=== PATIENT | female | born 1930 | race Caucasian/White ===

== ENCOUNTER → 2017-01-06 | Outpatient (CLI) | payer BC ==
[~2017-01-06] MED LIST: ASPI-589 PO; ATOR-24 PO; CALC-354 PO; CIPR-255 PO; CPR500 PO; LOSA1TAB38 PO; METO50TA7 PO; METR-163 PO; MULT-1092 PO; MULT-506; PANT40TA PO; PRLSR20; TRIATAB3 PO
--- NOTE | 2017-01-06 15:08 | MAMMOGRAPHY REPORT ---
UNILATERAL LEFT DIGITAL DIAGNOSTIC MAMMOGRAM TOMOSYNTHESIS WITH CAD AND TARGETED LEFT ULTRASOUND: CLINICAL HISTORY: 6 Month Follow-up Left. TECHNIQUE: Breast tomosynthesis in addition to standard 2D mammography was performed. Current study was also evaluated with a Computer Aided Detection (CAD) system. Left CC and MLO 2-D and tomosynth esis images were obtained. COMPARISON: Comparison is made to exams dated: 07/06/2016 ultrasound, 06/28/2016 mammogram, 015 mammogram, 06/21/2014 ultrasound, 06/21/2014 mammogram, and 05/29/2014 mammogram - [facility]. BREAST COMPOSITION: There are scattered areas of fibroglandular density in the left breast. FINDINGS: The previously seen mass in the left lower inner quadrant is no longer evident, and was s hown to represent a benign cyst on the prior ultrasound exam. The remainder of the left breast is s table compared to prior exams, without suspicious masses, calcifications, or areas of architectural distortion noted. Targeted ultrasound was performed of the previously seen left breast masses for which follow-up is r ecommended. In the left breast at 7:00, 2 cm from the nipple, there is an oval anechoic circumscrib ed mass with a thin internal septation, measuring 4 x 2 x 4 mm, not significantly changed compared t o the prior exam where the mass measured 4 x 3 x 3 mm. The finding is benign and consistent with a cyst. In the left breast at 6:00 2 cm from the nipple, there is a round anechoic circumscribed mass which measures 3 x 3 mm, not significantly changed and consistent with a benign cyst. IMPRESSION: ACR BI-RADS CATEGORY 2: BENIGN, TARGETED ULTRASOUND ACR BI-RADS CATEGORY 2: BENIGN Small benign cysts within the left 6 to 7:00 breast. There is no mammographic or targeted sonograph ic evidence of malignancy. Return to annual mammogram screening schedule is recommended, due June 2017. The patient has been verbally notified of the results. Approximately 10% of breast cancers are not detected with mammography. A negative mammographic repor t should not delay biopsy if a clinically suggestive mass is present. Eleni Vazquez M.D. ah/:01/06/2017 10:51:00 Veterinary Parasitologist: Kimberly More RT(R)(M), [facility] letter sent: Normal 09/13 BI-RADS Code: ACR BI-RADS Category 2: Benign Ultrasound BI-RADS: ACR BI-RADS Category 2: Benign
== END | disposition home or self-care (01) ==
LOC: C.MAMM 10:12
PROVIDERS: ATTEND Internal Medicine Geriatric Medicine
DX: N60.02 Solitary cyst of left breast (principal)

== ENCOUNTER 2017-02-18 14:46 | Emergency (ER) | payer BC ==
[~2017-02-18] VITALS: Ht 167.6 cm; Wt 83.6 kg
[~2017-02-18 14:46] MED LIST changes: -ASPI-589 PO; -ATOR-24 PO; -CALC-354 PO; -CIPR-255 PO; -LOSA1TAB38 PO; -METO50TA7 PO; -MULT-1092 PO; -PANT40TA PO; -TRIATAB3 PO
[2017-02-18 14:49] VITALS: TEMP 36.7; Ht 167.6 cm; Wt 83.6 kg
[2017-02-18] MEDS ORDERED: SODIUM CHLORIDE 0.9% 1000ML 1,000 ML IV STA (15:22)
--- NOTE | 2017-02-18 15:36 | EMERGENCY ROOM VISIT NOTE ---
History Report prepared by Annamaria: Francia Soliz Under the Supervision of: Dr. Kyle Antony M.D. First contact with patient: 15:13 Chief Complaint: ABDOMINAL PAIN Stated Complaint: PAIN IN L SIDE, SENT BY DR REJI WALLACE History of Present Illness The patient is an 86 year old female who presents to the Emergency Room with complaints of persistent left sided abdominal pain that began this past week. She currently rates her discomfort as a 6/10 in severity. The patient reports that she has a history of difficulties with her bowels intermittently over the last several years. She reports diarrhea this past week and then notes that she developed left abdominal pain. The patient states that she consulted her PCP's office and was instructed to come to the emergency department for a CT scan. She reports a history of diverticulitis. The patient associates back pain with her symptoms today. She denies any fever, chills, nausea, vomiting, or urinary symptoms. The patient states that her pain today feels worse than her typical diverticulitis. She denies any recent antibiotic use or sick contacts. 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 Source of History: patient Onset: this past week Position: abdomen (left sided) Symptom Intensity: 6/10 Timing: other (persistent) Associated Symptoms: + back pain, No fevers, No chills, No nausea, No vomiting, No urinary symptoms Review of Systems See HPI for pertinent positives & negatives. A total of 10 systems reviewed and were otherwise negative. Past Medical & Surgical Medical Problems: (1) Diverticulitis Surgical Problems: (1) S/p nephrectomy Old medical records were reviewed. Nurse's notes were reviewed and I agree with. Family History No pertinent family history stated. Social History Smoking Status: Never Smoker Marital Status: Housing Status: lives with significant other Occupation Status: retired Current/Historical Medications Scheduled Aspirin (Aspirin Adult Low Dose), 81 MG PO DAILY Atorvastatin (Lipitor), 40 MG PO DAILY Calcium Carbonate-Cholecalcife (Caltrate 600+D), 1 TAB PO DAILY Ciprofloxacin Hcl (Cipro), 500 MG PO QD Losartan Potassium (Cozaar), 100 MG PO DAILY Metoprolol Succ (Toprol Xl) (Toprol-Xl), 50 MG PO DAILY Metronidazole (Flagyl), 500 MG PO TID Multiple Vitamins W/ Minerals (Centrum Silver 50+Women), 1 TAB PO DAILY Pantoprazole (Protonix), 40 MG PO QAM Triamterene/Hctz (Triamterene/Hctz 37.5-25MG), 1 TAB PO DAILY Allergies Coded Allergies: Clarithromycin (Verified Allergy, Unknown, RASH, 02/18/17) Penicillins (Verified Allergy, Unknown, RASH, 02/18/17) Sulfa Drugs (Verified Allergy, Unknown, RASH, 02/18/17) Uncoded Allergies: NICKELSULFATE (Allergy, Unknown, RED;ITCHY SKIN, 10/17/09) Physical Exam Vital Signs Date Time Temp Pulse Resp B/P (MAP) Pulse Ox O2 Delivery O2 Flow Rate FiO2 02/18/17 17:13 78 16 181/106 97 02/18/17 14:49 36.7 91 18 158/113 94 Room Air Physical Exam General: Well developed well nourished non-ill appearing older female in no acute distress, breathing comfortably on room air. Normal speech HEENT: Normal cephalic atraumatic. Pupils are equal round and reactive to light. Extraocular movements are intact. Oropharynx is pink with moist mucous membranes. No swelling of the mouth lips or tongue. Neck: Supple with a midline trachea. No meningeal signs or stiffness, no JVD or bruits. No Stridor. Chest: Clear to auscultation bilaterally. No wheezes or rhonchi. No increased work of breathing. Heart: regular rate and rhythm. Abdomen: Mild tenderness in the left lower abdomen. Soft, nondistended without rebound guarding or rigidity. Extremities: No cyanosis clubbing or edema. No calf tenderness or assymetry Spine/Back. Non tender to palpation. No CVA tenderness Skin: Good turgor without rashes. Neurologic exam: Cranial nerves two through 12 are intact. Motor and sensation are intact and symmetrical throughout. Medical Decision & Procedures ER Provider Diagnostic Interpretation: CT results as stated below per my review and radiologist interpretation: CT SCAN OF THE ABDOMEN AND PELVIS WITHOUT IV CONTRAST CLINICAL HISTORY: Left-sided abdominal pain. COMPARISON STUDY: Abdominal CT dated 01/15/2013 and 07/29/2011. TECHNIQUE: CT scan of the abdomen and pelvis is performed from the lung bases to the proximal femora. Images are reviewed in the axial, sagittal, and coronal planes. IV contrast was not administered for this examination. Automated dose control exposure was utilized. CT DOSE: 1459.50 mGy.cm FINDINGS: Lung bases: The patient is status post midline sternotomy. The heart is enlarged and without pericardial effusion. The coronary arteries are densely calcified. There is evidence of previous mitral and aortic valve surgery. Chronic interstitial changes are present at the lung bases. No airspace consolidation or pleural effusion is seen. Liver: The unenhanced liver is normal in size, contour, and attenuation. There is no intrahepatic biliary ductal dilatation. Gallbladder: There are numerous calcified gallstones. The gallbladder is otherwise normal in appearance.. Spleen: Normal in size and attenuation. Pancreas: The unenhanced pancreas is moderately atrophic and grossly unremarkable. Adrenal glands: Unremarkable. Kidneys: The right kidney is surgically absent. The left kidney demonstrates mild cortical atrophy and is without hydronephrosis. No left renal calculi are identified. There is no evidence of contour deforming left renal mass lesion. Abdominal vasculature: There is advanced atherosclerotic calcification and ectasia of the abdominal aorta. Stomach and bowel: There is a large hiatal hernia, with over half the stomach located in the thoracic cavity. The duodenum is normal in configuration. No bowel obstruction is seen. There is advanced sigmoid diverticulosis. There is mild inflammation seen around the distal descending/proximal sigmoid colon consistent with mild acute diverticulitis. There is no intraperitoneal free air or evidence of abscess. Mild fecal retention is noted in the right colon. The appendix is well-visualized and normal. Peritoneum: There is no intraperitoneal free air or abdominal ascites. Lymphadenopathy: None. Pelvic viscera: The bladder, uterus, and adnexa are normal as visualized. Skeletal structures: The skeletal structures are osteopenic. There is moderate lumbosacral spondylosis. Sclerotic change is seen at the sacroiliac joints and pubic symphysis. No lytic or blastic lesions are seen. A sclerotic focus in the body of T11 is unchanged from 2011 and of doubtful significance. IMPRESSION: 1. There is advanced sigmoid diverticulosis with evidence of mild acute sigmoid diverticulitis. No intraperitoneal free air is identified and there is no evidence of abscess. 2. The right kidney is surgically absent. 3. Large hiatal hernia. 4. Mild cardiomegaly. 5. Additional findings as above. Electronically signed by: John Rosario M.D. 02/18/2017 4:05 PM Dictated Date/Time: 02/18/2017 3:45 PM Laboratory Results 02/18/17 15:10 Red Blood Count 4.12, Mean Corpuscular Volume 93.4, Mean Corpuscular Hemoglobin 31.3, Mean Corpuscular Hemoglobin Concent 33.5, Mean Platelet Volume 12.5, Neutrophils (%) (Auto) 59.1, Lymphocytes (%) (Auto) 25.2, Monocytes (%) (Auto) 11.0, Eosinophils (%) (Auto) 4.3, Basophils (%) (Auto) 0.3, Neutrophils # (Auto ) 4.73, Lymphocytes # (Auto) 2.01, Monocytes # (Auto) 0.88, Eosinophils # (Auto ) 0.34, Basophils # (Auto) 0.02 02/18/17 15:10 Test 02/18/17 15:10 White Blood Count 7.99 K/uL (4.8-10.8) Red Blood Count 4.12 M/uL (4.2-5.4) Hemoglobin 12.9 g/dL (12.0-16.0) Hematocrit 38.5 % (37-47) Mean Corpuscular Volume 93.4 fL (80-100) Mean Corpuscular Hemoglobin 31.3 pg (25-34) Mean Corpuscular Hemoglobin Concent 33.5 g/dl (32-36) Platelet Count 146 K/uL (130-400) Mean Platelet Volume 12.5 fL (7.4-10.4) Neutrophils (%) (Auto) 59.1 % Lymphocytes (%) (Auto) 25.2 % Monocytes (%) (Auto) 11.0 % Eosinophils (%) (Auto) 4.3 % Basophils (%) (Auto) 0.3 % Neutrophils # (Auto) 4.73 K/uL (1.4-6.5) Lymphocytes # (Auto) 2.01 K/uL (1.2-3.4) Monocytes # (Auto) 0.88 K/uL (0.11-0.59) Eosinophils # (Auto) 0.34 K/uL (0-0.5) Basophils # (Auto) 0.02 K/uL (0-0.2) RDW Standard Deviation 47.4 fL (36.4-46.3) RDW Coefficient of Variation 13.7 % (11.5-14.5) Immature Granulocyte % (Auto) 0.1 % Immature Granulocyte # (Auto) 0.01 K/uL (0.00-0.02) Urine Color YELLOW Urine Appearance CLEAR (CLEAR) Urine pH 5.5 (4.5-7.5) Urine Specific [place] 1.011 (1.000-1.030) Urine Protein NEG (NEG) Urine Glucose (UA) NEG (NEG) Urine Ketones NEG (NEG) Urine Occult Blood NEG (NEG) Urine Nitrite NEG (NEG) Urine Bilirubin NEG (NEG) Urine Urobilinogen NEG (NEG) Urine Leukocyte Esterase SMALL (NEG) Urine WBC (Auto) 1-5 /hpf (0-5) Urine RBC (Auto) 0-4 /hpf (0-4) Urine Hyaline Casts (Auto) 0 /lpf (0-5) Urine Epithelial Cells (Auto) >30 /lpf (0-5) Urine Bacteria (Auto) NEG (NEG) Anion Gap 8.0 mmol/L (3-11) Est Creatinine Clear Calc Drug Dose 35.1 ml/min Estimated GFR () 43.6 Estimated GFR (Non- 37.6 BUN/Creatinine Ratio 19.4 (10-20) Calcium Level 8.9 mg/dl (8.5-10.1) Total Bilirubin 0.6 mg/dl (0.2-1) Direct Bilirubin 0.2 mg/dl (0-0.2) Aspartate Amino Transf (AST/SGOT) 16 U/L (15-37) Alanine Aminotransferase (ALT/SGPT) 25 U/L (12-78) Alkaline Phosphatase 69 U/L (45-117) Total Protein 7.3 gm/dl (6.4-8.2) Albumin 3.7 gm/dl (3.4-5.0) Lipase 166 U/L (73-393) Laboratory studies as stated above per my review. Medications Administered Medications (Trade) Dose Ordered Sig/Brittney Route Start Time Stop Time Status Last Admin Dose Admin Sodium Chloride 1,000 ml @ 999 mls/hr Q1H1M STAT IV 02/18/17 15:22 02/18/17 16:22 DC 02/18/17 15:48 999 MLS/HR Ciprofloxacin (Cipro Tab) 500 mg NOW STAT PO 02/18/17 16:36 02/18/17 16:38 DC 02/18/17 17:07 500 MG Metronidazole (Flagyl Tab) 500 mg NOW STAT PO 02/18/17 16:36 02/18/17 16:38 DC 02/18/17 17:07 500 MG ED Course 1515: Past medical records reviewed. The patient was evaluated in room B10, and a complete history and physical examination were performed. 1522: Ordered Sodium Chloride 1000 ml @ 999 mls/hr IV. 1550: She arrived back from CT and appeared to be doing great. 1634: I reevaluated the patient and she is resting comfortably. I discussed the exam findings with her and I discussed the treatment plan. She verbalized complete understanding and agreement. She will be ready for discharge shortly. 1636: Ordered Flagyl Tab 500 mg PO, Cipro Tab 500 mg PO. Medical Decision Differentials include, but are not limited to; diverticulitis, colitis, kidney stone, UTI, electrolyte or metabolic abnormality. Medication Reconciliation: I attest that I have personally reviewed the patient' s current medication list. Blood Pressure Screening: Patient was found to have a slightly eleated blood pressure due to circumstances. I do not believe that the patient requires hypertension monitoring. This patient comes in as described above. She was placed in room B 10. She is having some mild left lower quadrant abdominal pain .she looks well on exam and is nontoxic. . She has no peritonitis. She has had diverticulitis before. IV access established and blood work was obtained . she's had no white count or fever to suggest infection. She has some mild renal insufficiency however she has baseline 1 kidney. She's no other acute electrolyte or metabolic abnormality. She has nothing to suggest liver disease or gallbladder disease. Her urinalysis does not suggest infection. I did a CAT scan without contrast given that she has one kidney. She has some mild diverticulitis. No evidence of abscess. I will treat her with Cipro and Flagyl. She is pen allergic. Based on her renal insufficiency ,we will do Cipro 500 mg just once a day for 10 days, the first dose was given here and Flagyl 500 mg 3 times a day for 10 days. I told her not to drink any alcohol for the next 10 days when taking the Flagyl as it could make her very ill. I encouraged follow-up with her regular doctor Tuesday for recheck and return sooner if: increasing pain, worsening of symptoms, fever chills, not tolerating fluids, any new problems concerns. She was happy with plan and was discharged home. Impression Primary Impression: Acute diverticulitis Additional Impression: Sigmoid diverticulitis Scribe Attestation The scribe's documentation has been prepared under my direction and personally reviewed by me in its entirety. I confirm that the note above accurately reflects all work, treatment, procedures, and medical decision making performed by me. Departure Information Dispostion Home / Self-Care Prescriptions Metronidazole (Flagyl) 500 Mg Tab 500 MG PO TID for 10 Days, #30 TAB Prov: Kyle Antony M.D. 02/18/17 Ciprofloxacin Hcl (CIPRO) 500 Mg Tab 500 MG PO QD, #10 TAB Prov: Kyle Antony M.D. 02/18/17 Referrals Reji Wallace M.D. (PCP) Forms HOME CARE DOCUMENTATION FORM, IMPORTANT VISIT INFORMATION Patient Instructions My [facility] Additional Instructions Rest. Drink plenty of fluids. Use Cipro 500 mg once a dayantibiotic. 10 days total. Use Flagyl 500 mg 3 times a dayantibiotic. 10 days so Do not drink alcohol For the next 10 days when you are on these antibiotics, you will make you feel very sick Return if: Worsening of symptoms, fever or chills, any new problems or concerns Problem Qualifiers
--- NOTE | 2017-02-18 16:06 | DIAGNOSTIC IMAGING REPORT ---
CT SCAN OF THE ABDOMEN AND PELVIS WITHOUT IV CONTRAST CLINICAL HISTORY: Left-sided abdominal pain. COMPARISON STUDY: Abdominal CT dated 01/15/2013 and 07/29/2011. TECHNIQUE: CT scan of the abdomen and pelvis is performed from the lung bases to the proximal femora. Images are reviewed in the axial, sagittal, and coronal planes. IV contrast was not administered for this examination. Automated dose control exposure was utilized. CT DOSE: 1459.50 mGy.cm FINDINGS: Lung bases: The patient is status post midline sternotomy. The heart is enlarged and without pericardial effusion. The coronary arteries are densely calcified. There is evidence of previous mitral and aortic valve surgery. Chronic interstitial changes are present at the lung bases. No airspace consolidation or pleural effusion is seen. Liver: The unenhanced liver is normal in size, contour, and attenuation. There is no intrahepatic biliary ductal dilatation. Gallbladder: There are numerous calcified gallstones. The gallbladder is otherwise normal in appearance.. Spleen: Normal in size and attenuation. Pancreas: The unenhanced pancreas is moderately atrophic and grossly unremarkable. Adrenal glands: Unremarkable. Kidneys: The right kidney is surgically absent. The left kidney demonstrates mild cortical atrophy and is without hydronephrosis. No left renal calculi are identified. There is no evidence of contour deforming left renal mass lesion. Abdominal vasculature: There is advanced atherosclerotic calcification and ectasia of the abdominal aorta. Stomach and bowel: There is a large hiatal hernia, with over half the stomach located in the thoracic cavity. The duodenum is normal in configuration. No bowel obstruction is seen. There is advanced sigmoid diverticulosis. There is mild inflammation seen around the distal descending/proximal sigmoid colon consistent with mild acute diverticulitis. There is no intraperitoneal free air or evidence of abscess. Mild fecal retention is noted in the right colon. The appendix is well-visualized and normal. Peritoneum: There is no intraperitoneal free air or abdominal ascites. Lymphadenopathy: None. Pelvic viscera: The bladder, uterus, and adnexa are normal as visualized. Skeletal structures: The skeletal structures are osteopenic. There is moderate lumbosacral spondylosis. Sclerotic change is seen at the sacroiliac joints and pubic symphysis. No lytic or blastic lesions are seen. A sclerotic focus in the body of T11 is unchanged from 2011 and of doubtful significance. IMPRESSION: 1. There is advanced sigmoid diverticulosis with evidence of mild acute sigmoid diverticulitis. No intraperitoneal free air is identified and there is no evidence of abscess. 2. The right kidney is surgically absent. 3. Large hiatal hernia. 4. Mild cardiomegaly. 5. Additional findings as above. Electronically signed by: John Rosario M.D. 02/18/2017 4:05 PM Dictated Date/Time: 02/18/2017 3:45 PM
[2017-02-18 16:08] LABS: BASO % 0.3 %; BASO ABS # 0.02 K/uL (0-0.2); COMPLETE YES; EOS % 4.3 %; HEMATOCRIT 38.5 % (37-47); IG% 0.1 %; LYMPH % 25.2 %; LYMPH ABS # 2.01 K/uL (1.2-3.4); MEAN CELL VOLUME 93.4 fL (80-100); MEAN CORPUSCULAR HEMOGLOBIN 31.3 pg (25-34); MEAN CORPUSCULAR HGB CONC 33.5 g/dl (32-36); MEAN PLATELET VOLUME 12.5 fL (7.4-10.4); NEUT % 59.1 %; PLATELET COUNT 146 K/uL (130-400); RED BLOOD COUNT 4.12 M/uL (4.2-5.4); WHITE BLOOD COUNT 7.99 K/uL (4.8-10.8)
[2017-02-18 16:13] LABS: BUN/CREATININE RATIO 19.4 (10-20); CREATININE 1.3 mg/dl (0.60-1.20); POTASSIUM 4.3 mmol/L (3.5-5.1)
[2017-02-18 16:18] LABS: MANUAL MICROSCOPIC REQUIRED? NO; REVIEW REQ? NO; URINE APPEARANCE CLEAR (CLEAR); URINE BILIRUBIN NEG (NEG); URINE COLOR YELLOW; URINE EPITHELIAL CELL AUTO >30 /lpf (0-5); URINE NITRITE NEG (NEG); URINE PH 5.5 (4.5-7.5); URINE SPECIFIC GRAVITY 1.011 (1.000-1.030); UROBILINOGEN NEG (NEG)
[2017-02-18] MEDS ORDERED: LOSA1TAB38 PO (16:29)
[2017-02-18] MEDS ORDERED: ASPI-589 PO (16:29)
[2017-02-18] MEDS ORDERED: PANT40TA PO (16:29)
[2017-02-18] MEDS ORDERED: ATOR-24 PO (16:29)
[2017-02-18] MEDS ORDERED: CALC-354 PO (16:29)
[2017-02-18] MEDS ORDERED: METO50TA7 PO (16:29)
[2017-02-18] MEDS ORDERED: TRIATAB3 PO (16:29)
[2017-02-18] MEDS ORDERED: MULT-1092 PO (16:29)
[2017-02-18] MEDS ORDERED: METRONIDAZOLE 250 MG TAB PO STA (16:36)
[2017-02-18] MEDS ORDERED: CIPROFLOXACIN 500 MG TAB PO STA (16:36)
[2017-02-18] MEDS ORDERED: METR-163 PO (16:44)
[2017-02-18] MEDS ORDERED: CIPR-255 PO (16:44)
[2017-02-18 17:03] LABS: CALCIUM 8.9 mg/dl (8.5-10.1)
[2017-02-18 17:13] VITALS: BP 181/106; PULSE 78; O2SAT 97
== END 2017-02-18 17:05 | disposition home or self-care (01) ==
LOC: C.EDB 14:47
DX: K57.32 Diverticulitis of large intestine without perforation or abscess without bleeding (principal); Z79.82 Long term (current) use of aspirin; Z79.899 Other long term (current) drug therapy

== ENCOUNTER → 2017-02-25 | Outpatient (CLI) | payer BC ==
[~2017-02-25] MED LIST changes: +ASPI-589 PO; +ATOR-24 PO; +CALC-354 PO; +CIPR-255 PO; -CPR500 PO; +LOSA1TAB38 PO; +METO50TA7 PO; +MULT-1092 PO; -MULT-506; +PANT40TA PO; -PRLSR20; +TRIATAB3 PO
== END | disposition home or self-care (01) ==
LOC: C.LABBC 13:06
PROVIDERS: ATTEND Internal Medicine Geriatric Medicine
DX: R19.7 Diarrhea, unspecified (principal)

== ENCOUNTER → 2017-07-28 | Outpatient (CLI) | payer BC ==
[~2017-07-28] MED LIST changes: -METR-163 PO
--- NOTE | 2017-07-28 15:31 | MAMMOGRAPHY REPORT ---
BILATERAL DIGITAL SCREENING MAMMOGRAM WITH CAD: 07/28/2017 CLINICAL HISTORY: Routine screening. Patient has no complaints. TECHNIQUE: Current study was also evaluated with a Computer Aided Detection (CAD) system. Bilateral CC and MLO views were obtained. COMPARISON: Comparison is made to exams dated: 01/06/2017 mammogram, 06/28/2016 mammogram, 06/24/2015 mammogram, 06/21/2014 mammogram, 05/29/2014 mammogram, and 05/28/2013 mammogram - [facility]. BREAST COMPOSITION: There are scattered areas of fibroglandular density in both breasts. FINDINGS: No suspicious masses, calcifications, or areas of architectural distortion are noted in ei ther breast. There has been no significant interval change compared to prior exams. Bilateral benign appearing calcifications are not significantly changed. Bilateral asymmetries and benign-appearing masses are stable. IMPRESSION: ACR BI-RADS CATEGORY 2: BENIGN There is no mammographic evidence of malignancy. A 1 year screening mammogram is recommended. The pa tient will receive written notification of the results. Approximately 10% of breast cancers are not detected with mammography. A negative mammographic report should not delay biopsy if a clinically suggestive mass is present. Eleni Vazquez M.D. /:07/28/2017 15:04:46 Printing Grey Cloth Tender: Andria CHANEL(Carol)(Ronal)(BD), [facility] letter sent: Normal 1/2 BI-RADS Code: ACR BI-RADS Category 2: Benign
== END | disposition home or self-care (01) ==
LOC: C.MAMM 13:06
PROVIDERS: ATTEND Internal Medicine Geriatric Medicine
DX: Z12.31 Encounter for screening mammogram for malignant neoplasm of breast (principal)

== ENCOUNTER → 2017-09-13 | Outpatient (CLI) | payer BC ==
[~2017-09-13] MED LIST changes: -METO50TA7 PO; +METO50TA8 PO
--- NOTE | 2017-09-13 15:21 | DIAGNOSTIC IMAGING REPORT ---
PELVIS 1 OR 2 VIEW ROUTINE CLINICAL HISTORY: HIP PAIN pain COMPARISON: None. 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 Moderate degenerative change of the sacroiliac joints including moderate sclerosis. No evidence for well-defined fracture or dislocation. No evidence for acetabular protrusion. There is no evidence for soft tissue swelling. 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 No acute process. The above report was generated using voice recognition software. It may contain grammatical, syntax or spelling errors. Electronically signed by: Georges Hanley M.D. 09/13/2017 3:20 PM Dictated Date/Time: 09/13/2017 3:19 PM
== END | disposition home or self-care (01) ==
LOC: C.LABBC 14:48
PROVIDERS: ATTEND Physician Assistant Medical
DX: M25.551 Pain in right hip (principal)

== ENCOUNTER → 2017-11-04 | Outpatient (CLI) | payer BC ==
--- NOTE | 2017-11-04 12:58 | DIAGNOSTIC IMAGING REPORT ---
ABDOMEN FOR HERNIA CLINICAL HISTORY: Right groin pain. COMPARISON STUDY: CT of the abdomen and pelvis February 18, 2017. FINDINGS: Sonography of the right groin demonstrates a bowel and fat-containing right groin hernia. By sonography, is not possible to determine whether this represents an inguinal or femoral hernia. IMPRESSION: Reducible bowel and fat-containing right groin hernia. By sonography, is difficult to determine whether this represents an inguinal or femoral hernia. Electronically signed by: Adebayo Woo M.D. 11/04/2017 12:56 PM Dictated Date/Time: 11/04/2017 12:53 PM
== END | disposition home or self-care (01) ==
LOC: C.ULTR 12:29
PROVIDERS: ATTEND Internal Medicine Geriatric Medicine
DX: M25.551 Pain in right hip (principal); K45.8 Other specified abdominal hernia without obstruction or gangrene

== ENCOUNTER 2019-12-30 13:59 | Inpatient (IN) ==
[2019-12-30] MEDS ORDERED: ONDANSETRON INJ 2 MG/ML 2 ML VIAL IV STA (14:10)
[2019-12-30] MEDS ORDERED: MoRPHine SULFATE 4 MG/ML 1 ML CARP\\VIAL IV STA (14:10)
[2019-12-30] MEDS ORDERED: SODIUM CHLORIDE 0.9% 1000ML 250 ML IV ONE (14:10)
--- NOTE | 2019-12-30 14:19 | Emergency Department Note ---
History of Present Illness General Chief complaint: Abdominal Pain Stated complaint: lower abd pain Time Seen by Provider: 12/30/19 14:02 Source: patient Mode of arrival: EMS History of Present Illness Provider complaint: Abdominal pain Onset (ago): hour(s) (6 AM this morning) Location: abdomen (Across mid abdomen) Severity: moderate Pain Consistency: + constant Maximum Pain Intensity: 9 Quality: + sharp Relieved By: + none Associated symptoms: + nausea/vomiting; no chest pain, no cough, no fever/chills, no malaise and no shortness of breath This is an 89-year-old female with a history of a solitary kidney presenting with mid abdominal pain. It started at 6 AM this morning. She states it is across her mid abdomen without radiation. No modifying or alleviating factors. It is sharp in nature. It is associated with dry heaves. She denies fever, diarrhea, urinary symptoms, chest pain, shortness of breath, recent travel or known exposure to COVID-19. She called her doctor who advised her to come to the emergency department. Home Medications Home Medications Medication Instructions Recorded Confirmed Type aspirin 81 mg tablet,delayed 81 mg PO QAM 09/19/18 12/30/19 History release calcium carbonate-vitamin D3 600 1 tab PO QAM 09/19/18 12/30/19 History mg (1,500 mg)-800 unit tablet zlxjyiby-jfhhiso-kcqb-lutein 1 tab PO DAILY tab 09/19/18 12/30/19 History melatonin 5 mg PO HS PRN 03/02/19 12/30/19 History famotidine 40 mg tablet 40 mg PO HS tab 09/17/19 12/30/19 History metoprolol succinate 50 mg 50 mg PO QAM #30 tab 10/03/19 12/30/19 Rx tablet,extended release 24 hr atorvastatin 40 mg tablet 40 mg PO QAM #90 tab 12/21/19 12/30/19 Rx losartan 100 mg tablet 100 mg PO QAM #90 tab 12/21/19 12/30/19 Rx Allergies Allergy/AdvReac Type Severity Reaction Status Date / Time clarithromycin Allergy Unknown RASH Verified 12/30/19 14:45 Penicillins Allergy Unknown RASH Verified 12/30/19 14:45 Sulfa (Sulfonamide Allergy Unknown RASH Verified 12/30/19 14:45 Antibiotics) NICKELSULFATE Allergy Unknown RED;ITCHY Uncoded 12/30/19 14:45 SKIN Past Med/Surg History Medical History CAD (coronary artery disease) (Chronic) Dyslipidemia (Chronic) GERD (gastroesophageal reflux disease) History of atrial fibrillation POST OP CABG - RESOLVED SPONTANEOUSLY DURING HOSPITAL STAY - NO ISSUES SINCE. History of basal cell cancer HTN (hypertension) (Chronic) Left hip pain (Inactive) Lumbar radiculopathy (Inactive) Lumbar spinal stenosis Mitral regurgitation (Inactive) Osteoarthritis Sensorineural hearing loss (SNHL) of both ears (Inactive) Stage III chronic kidney disease (Acute) Status post nephrectomy BENIGN GROWTH Trigger finger Surgical History History of basal cell carcinoma (BCC) excision History of cardiac cath 9 YEARS AGO - [facility] - SOB, ABN STRESS TEST --> CABG History of cataract surgery History of colonoscopy History of coronary artery bypass graft 3 VESSELS - 9 YEARS AGO - [facility] [place] - FOLLOWS W/ DR. 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) Family History Mother Coronary heart disease Father Coronary heart disease Brother Coronary heart disease Social History Preferred Language: [place] Communication Ability: Effective Visual Impairment: No Limitations Hearing Ability: Normal Rn Digestive Required: No Beliefs That Will Affect Care: None marital status: Current Living Situation: Spouse current occupational status: retired Feels Safe at Home: Yes Smoking Status: Never smoker Second Hand Exposure: No ; Hx Alcohol Use: Yes Alcohol type: wine Hx Substance Use: No Review of Systems See HPI for pertinent positives & negatives. and A total of 10 systems reviewed and were otherwise negative Physical Exam Vital Signs Vital Signs - 24 hr 12/30/19 14:04 12/30/19 14:10 12/30/19 15:45 Temperature 36.5 C Temperature Source Oral Pulse Rate 54 L Pulse Rate [Bilateral Finger] 56 L Pulse Rate from SpO2 Sensor 56 L Pulse Strength Normal Respiratory Rate 15 18 Respiratory Effort / Characteristics Non-Labored Spontaneous Non-Labored Respiratory Depth Normal Normal Respiratory Pattern Regular Regular Blood Pressure 167/86 H Blood Pressure [Right Arm] 177/99 H Blood Pressure Mean 105 Blood Pressure Mean [Right Arm] 125 Blood Pressure Position Lying Pulse Oximetry 96 95 96 Oxygen Delivery Method Room Air Room Air Room Air Sepsis Recent Fever Within 48 Hours No Sepsis Action Taken by Nursing No Action Required Constitutional: Vital signs reviewed. Eyes: Pupils are equal round reactive to light. Conjunctiva are noninjected. ENT: Pharynx is clear without erythema or exudate. Mucous membranes are slightly dry. Neck supple without meningeal signs. Respiratory: Clear to auscultation bilaterally. Breath sounds are equal bilaterally. Cardiovascular: Regular rhythm with occasional extrasystole. Regular rate. Systolic murmur. GI: Soft, nondistended with left lower quadrant tenderness. No guarding. Bowel sounds are present. Musculoskeletal: No peripheral edema. No lower extremity tenderness. Integumentary: No cyanosis. or jaundice. Neurological: The patient is awake and alert. No focal deficits. Psychiatric: Normal affect. Not anxious appearing. Course Administered Medications Ciprofloxacin (Cipro) 400 mg in 200 mls @ 200 mls/hr IV NOW STA Stop: 12/30/19 16:35 Last Admin: 12/30/19 15:51 Dose: 200 mls/hr Documented by: [id number] Discontinued Medications Sodium Chloride (Nss 1000ml) 250 mls @ 999 mls/hr IV .Q16M ONE Stop: 12/30/19 14:25 Last Infusion: 12/30/19 15:00 Dose: 0 mls/hr Documented by: [id number] Admin: 12/30/19 14:25 Dose: 999 mls/hr Documented by: [id number] Morphine Sulfate (Morphine Sulfate) 4 mg IV NOW STA Stop: 12/30/19 14:11 Last Admin: 12/30/19 14:26 Dose: 4 mg Documented by: [id number] Ondansetron HCl (Zofran) 4 mg IV NOW STA Stop: 12/30/19 14:11 Last Admin: 12/30/19 14:26 Dose: 4 mg Documented by: [id number] Medical Decision Making Differential Diagnosis Diverticulitis, perforation, abscess, pancreatitis, mass Medical Records Attestation: I reviewed the patient's medical records. I did perform a limited focused review of portions of the patient's old chart on the electronic medical record. The patient has had no recent pertinent visits to this hospital. She was seen by pain management several months ago. A year ago she did have diverticulitis on CT scan of the sigmoid colon. Home Medications Current Medication List: was personally reviewed by me Laboratory Data Attestation: I reviewed the patient's lab results. Result diagrams: 12/30/19 14:30 12/30/19 14:30 Lab Results 12/30/19 12/30/19 Range/Units 14:30 14:30 WBC 9.23 (4.8-10.8) K/uL RBC 4.42 (4.2-5.4) M/uL Hgb 13.7 (12.0-16.0) g/dL Hct 42.1 (37-47) % MCV 95.2 (80-100) fL MCH 31.0 (25-34) pg MCHC 32.5 (32-36) g/dL RDW Std Deviation 48.8 H (36.4-46.3) fL RDW Coeff of Maryellen 14.1 (11.5-14.5) % Plt Count 152 (130-400) K/uL MPV 12.4 H (7.4-10.4) fL Immature Gran % (Auto) 0.1 % Neut % (Auto) 88.1 % Lymph % (Auto) 8.6 % [place] % (Auto) 2.7 % Eos % (Auto) 0.1 % Baso % (Auto) 0.4 % Immature Gran # (Auto) 0.01 (0.00-0.02) K/uL Neut # (Auto) 8.13 H (1.4-6.5) K/uL Lymph # (Auto) 0.79 L (1.2-3.4) K/uL [place] # (Auto) 0.25 (0.11-0.59) K/uL Eos # (Auto) 0.01 (0-0.5) K/uL Baso # (Auto) 0.04 (0-0.2) K/uL Sodium 138 (136-145) mmol/L Potassium (3.5-5.1) mmol/L Chloride 103 (98-107) mmol/L Carbon Dioxide 28 (21-32) mmol/L Anion Gap 7.0 (3-11) BUN 23 H (7-18) mg/dl Creatinine 1.13 (0.6-1.2) mg/dl Est Cr Clr Drug Dosing 35.5 ml/min Est GFR ( Amer) 50.6 Est GFR (Non-Af Amer) 43.7 BUN/Creatinine Ratio 20.6 H (10-20) Glucose 144 H (70-99) mg/dl Calcium 9.2 (8.5-10.1) mg/dl Total Bilirubin 0.7 (0.2-1) mg/dl AST (15-37) U/L ALT 23 (12-78) U/L Alkaline Phosphatase 53 (45-117) U/L Total Protein 7.2 (6.4-8.2) gm/dl Albumin 3.4 (3.4-5.0) gm/dl Globulin 3.8 (2.5-4.0) gm/dl Albumin/Globulin Ratio 0.9 (0.9-2) Lipase 71 L (73-393) U/L Imaging Data Radiologist's Impression: ABDOMEN AND PELVIS CT WITHOUT CONTRAST CT DOSE: 405.11 mGy.cm HISTORY: Acute left lower quadrant abdominal pain LLQ pain eval for divertic TECHNIQUE: Multiaxial CT images of the abdomen and pelvis were performed without contrast. A dose lowering technique was utilized adhering to the principles of ALARA. COMPARISON STUDY: CT abdomen and pelvis 12/30/2018, 07/29/2011. FINDINGS: Small right pleural effusion with dependent groundglass and consolidative right lung base opacities. Mild traction bronchiectasis of the lung bases also noted with minimal left lung base atelectasis. Minimal mucus plugging of the right middle lobe. No pneumatosis or pneumoperitoneum. Prior median sternotomy with cardiac valvular prosthesis. Cardiomegaly. Coronary artery and mitral annular calcifications. Limited evaluation of the solid abdominal organs without the use of IV contrast. Within the limitations of the exam, the spleen and adrenal glands are unremarkable. Mild cholelithiasis without CT evidence of acute cholecystitis or biliary ductal dilation. Mild to moderate generalized pancreatic atrophy. Unenhanced liver is unremarkable. Soft tissue attenuating 2.1 cm lesion of the superior pole left kidney is unchanged from the 2019 exam. This previously measured 1.6 cm in 2011. Surgically absent right kidney. Mild urinary bladder wall thickening. Unremarkable uterus. Extensive calcified plaque of the abdominal aorta with mild infrarenal tortuosity, 2.5 x 2.3 cm. No adenopathy. Large hiatal hernia with majority of the stomach present within the thoracic cavity. Multiple prominent air and fluid-filled loops of small bowel throughout the abdomen and pelvis are noted measuring up to 2.8 cm transversely. Interloop edema is noted with trace abdominal pelvic ascites. No discrete transition point. Extensive colonic diverticulosis. Mild wall thickening throughout the mid sigmoid colon. No significant pericolonic stranding. Mild wall thickening with partial distention of the transverse colon. The appendix is not diagnostically visualized. Mild subcutaneous edema of the body wall. Demineralized appearance the bones with degenerative changes of the spine, pelvis and hips. IMPRESSION: 1. Multiple prominent air and fluid-filled loops of small bowel throughout the abdomen and pelvis with reactive interloop edema and trace abdominal pelvic ascites is suggestive of low-grade small bowel obstruction versus ileu s/enteritis. A discrete transition point is not identified. 2. Extensive colonic diverticulosis. Wall thickening within the mid sigmoid colon is likely secondary to chronic diverticular disease without definite acute diverticulitis identified. 3. Soft tissue attenuating 2.1 cm lesion of the superior pole left kidney has slightly increased in size over the years, previously measuring 1.6 cm in 2011. A slow-growing renal cell carcinoma is the diagnosis of exclusion. 4. Small right pleural effusion with right lung base opacities suggestive of atelectasis versus pneumonitis. 5. Large hiatal hernia. 6. Additional findings as above. ACT 112: Negative or not required by law. The above report was generated using voice recognition software. It may contain grammatical, syntax or spelling errors. Electronically signed by: Carmelo Alfred M.D. 12/30/2019 3:12 PM Blood Pressure Blood Pressure Findings: Elevated blood pressure Blood Pressure Disposition: Referred to patients primary care provider MDM Narrative I did evaluate the patient as noted above. IV access was established. I did treat the patient with normal saline IV, morphine and Zofran IV. I did order a urine analysis. I did order and review the patient's blood work as noted in the electronic medical record. CBC is unremarkable without anemia or leukocytosis. Electrolytes are unremarkable. I did order a CT of the abdomen and pelvis. I did review the images myself as well as the radiology report as described above. The patient appears to have what looks like a low-grade small bowel obstruction which fits clinically with her symptoms. There is also diverticulosis without definite Acute diverticulitis identified but I do believe she likely has diverticulitis. She does have wall thickening and she is tender right over the sigmoid colon. I did reassess the patient. She states she feels much better at this time. I did discuss the test results with the patient and recommended hospitalization for further care and evaluation. I did discuss case with the hospitalist and case specialist. I did treat her with IV Cipro and Flagyl. Cardiac monitoring: Indication: Extrasystole on auscultation of the heart Rate and rhythm: Normal sinus rhythm with a rate of 60 with occasional PVCs. Impression & Plan Small bowel obstruction, Diverticulitis, Pleural effusion on right, Left kidney mass Discharge Plan Visit Data Chief Complaint: Abdominal Pain Stated Complaint: lower abd pain ED Provider: Deangelo Engel Discharge Problem: Small bowel obstruction, Diverticulitis, Pleural effusion on right, Left kidney mass Patient Disposition: Being Evaluated by Hospitalist Condition: Good Forms Stand Alone Forms: [facility] Prescriptions Prescriptions: No Action aspirin [Adult Aspirin Regimen] 81 mg tablet,delayed release (DR/EC) 81 mg PO QAM RF: 0 hqaepdla-adiloqx-ngag-lutein tablet 1 tab PO DAILY RF: 0 calcium carbonate-vitamin D3 [Caltrate with Vitamin D3] 600 mg(1,500mg) -800 unit tablet 1 tab PO QAM RF: 0 famotidine 40 mg tablet 40 mg PO HS RF: 0 metoprolol succinate 50 mg tablet extended release 24 hr 50 mg PO QAM Qty: 30 RF: 5 atorvastatin [Lipitor] 40 mg tablet 40 mg PO QAM Qty: 90 RF: 3 losartan 100 mg tablet 100 mg PO QAM Qty: 90 RF: 3 melatonin 5 mg Tablet 5 mg PO HS PRN (Reason: Insomnia) RF: 0 Referrals Referrals: Kyle Muse DO [Primary Care Provider] -
[2019-12-30 14:40] LABS: Basophils # (auto) 0.04 K/uL (0-0.2); Basophils % (auto) 0.4 %; Eosinophils # (auto) 0.01 K/uL (0-0.5); Eosinophils % (auto) 0.1 %; Hematocrit (blood only) 42.1 % (37-47); Hemoglobin 13.7 g/dL (12.0-16.0); Immature Granulocytes # (auto) 0.01 K/uL (0.00-0.02); Immature Granulocytes % (auto) 0.1 %; Lymphocytes # (auto) 0.79 K/uL (1.2-3.4); Lymphocytes % (auto) 8.6 %; Mean Corpuscular Hgb Conc 32.5 g/dL (32-36); Mean Corpuscular Volume 95.2 fL (80-100); Mean Platelet Volume 12.4 fL (7.4-10.4); Monocytes # (auto) 0.25 K/uL (0.11-0.59); Monocytes % (auto) 2.7 %; Neutrophils # (auto) 8.13 K/uL (1.4-6.5); Neutrophils % (auto) 88.1 %; Platelet Count 152 K/uL (130-400); RDW Coefficient of Variation 14.1 % (11.5-14.5); RDW Standard Deviation 48.8 fL (36.4-46.3); Red Blood Count 4.42 M/uL (4.2-5.4); White Blood Count 9.23 K/uL (4.8-10.8)
[2019-12-30 14:58] LABS: Albumin Level 3.4 gm/dl (3.4-5.0); BUN Creatinine Ratio 20.6 (10-20); Calcium 9.2 mg/dl (8.5-10.1); Creatinine Clr Calc Pharmacy 35.5 ml/min; Est GFR (African American) 50.6; Est GFR (Non-African American) 43.7
[2019-12-30 15:00] LABS: Albumin Globulin Ratio 0.9 (0.9-2); Bilirubin,Total 0.7 mg/dl (0.2-1); Globulin 3.8 gm/dl (2.5-4.0); Total Protein 7.2 gm/dl (6.4-8.2)
--- NOTE | 2019-12-30 15:13 | CT Scan Report ---
ABDOMEN AND PELVIS CT WITHOUT CONTRAST CT DOSE: 405.11 mGy.cm HISTORY: Acute left lower quadrant abdominal pain LLQ pain eval for divertic TECHNIQUE: Multiaxial CT images of the abdomen and pelvis were performed without contrast. A dose lo wering technique was utilized adhering to the principles of ALARA. COMPARISON STUDY: CT abdomen and pelvis 12/30/2018, 07/29/2011. FINDINGS: Small right pleural effusion with dependent groundglass and consolidative right lung base opacities. Mild traction bronchiectasis of the lung bases also noted with minimal left lung base atelectasis. Mi nimal mucus plugging of the right middle lobe. No pneumatosis or pneumoperitoneum. Prior median doty otomy with cardiac valvular prosthesis. Cardiomegaly. Coronary artery and mitral annular calcificatio ns. Limited evaluation of the solid abdominal organs without the use of IV contrast. Within the limitatio ns of the exam, the spleen and adrenal glands are unremarkable. Mild cholelithiasis without CT eviden ce of acute cholecystitis or biliary ductal dilation. Mild to moderate generalized pancreatic atrophy . Unenhanced liver is unremarkable. Soft tissue attenuating 2.1 cm lesion of the superior pole left k idney is unchanged from the 2019 exam. This previously measured 1.6 cm in 2011. Surgically absent rig ht kidney. Mild urinary bladder wall thickening. Unremarkable uterus. Extensive calcified plaque of t he abdominal aorta with mild infrarenal tortuosity, 2.5 x 2.3 cm. No adenopathy. Large hiatal hernia with majority of the stomach present within the thoracic cavity. Multiple promine nt air and fluid-filled loops of small bowel throughout the abdomen and pelvis are noted measuring up to 2.8 cm transversely. Interloop edema is noted with trace abdominal pelvic ascites. No discrete tr ansition point. Extensive colonic diverticulosis. Mild wall thickening throughout the mid sigmoid col on. No significant pericolonic stranding. Mild wall thickening with partial distention of the transve rse colon. The appendix is not diagnostically visualized. Mild subcutaneous edema of the body wall. D emineralized appearance the bones with degenerative changes of the spine, pelvis and hips. IMPRESSION: 1. Multiple prominent air and fluid-filled loops of small bowel throughout the abdomen and pelvis wit h reactive interloop edema and trace abdominal pelvic ascites is suggestive of low-grade small bowel obstruction versus ileus/enteritis. A discrete transition point is not identified. 2. Extensive colonic diverticulosis. Wall thickening within the mid sigmoid colon is likely secondary to chronic diverticular disease without definite acute diverticulitis identified. 3. Soft tissue attenuating 2.1 cm lesion of the superior pole left kidney has slightly increased in s ize over the years, previously measuring 1.6 cm in 2010. A slow-growing renal cell carcinoma is the d iagnosis of exclusion. 4. Small right pleural effusion with right lung base opacities suggestive of atelectasis versus pneum onitis. 5. Large hiatal hernia. 6. Additional findings as above. ACT 112: Negative or not required by law. The above report was generated using voice recognition software. It may contain grammatical, syntax o r spelling errors. Electronically signed by: Carmelo Alfred M.D. 12/30/2019 3:12 PM
[2019-12-30] MEDS ORDERED: metroNIDAZOLE 500 MG/100 ML BAG IV STA (15:36)
[2019-12-30] MEDS ORDERED: CIPROFLOXACIN / D5W 400 MG/200 ML BAG IV STA (15:36)
--- NOTE | 2019-12-30 16:17 | History & Physical Report ---
Date of Service December 30, 2019 Assessment & Plan (1) Diverticulitis: Although not definitive on CT this was without contrast and acute diverticulitis of her transverse bowel fits her symptoms clinically with mid transverse bowel wall thickening seen on CT. Suspect inflammation is causing ileus rather than adhesion-associated SBO. Continue ciprofloxacin and metronidazole IV. (2) Small bowel obstruction: Low grade. Suspect more ileus from inflammation than true SBO. Keep NPO for now but she can have ice and sips to keep her mouth hydrated. Likely can increase diet tomorrow as long as she does well overnight. LR 125ml/hr maintenance while NPO Since low grade will defer surgical consult at this stage. (3) Large hiatal hernia: Most of her stomach is in her thoracic cavity therefore likely she is owen ving reflux even if she does not notice it while on Pepcid. Elevate head of bed > 30 degrees at night Continue pepcid (switched to IV while NPO). (4) Pleural effusion on right: ?caused by atelectasis and poor air entry into RLL due to silent aspirations vs. compression from large hiatal hernia. Given her age cancerous etiology would be a more remote concern. No significant hypoxia or shortness of breath to suggest PNA. Consider speech evaluation once diet is advanced although I suspect if she is aspirating this may be more down to her large hiatal hernia and nausea with current illness causing reflux. Consult pulmonology for recommendations for thoracocentesis. (5) HTN (hypertension): Hold oral metoprolol and losartan while NPO. Start on enalapril IV while NPO. (6) Dyslipidemia: Holding statin while NPO (7) CAD (coronary artery disease): Holding ASA, BB, ARB, statin while NPO. (8) GERD (gastroesophageal reflux disease): as above for large hiatal hernia (9) Stage III chronic kidney disease: Stable. Continue to monitor BMP throughout admission. (10) Left kidney mass: Stable since last year, although slowly growing over the year. She notes she has urology follow up but cannot remember when this is. (11) DVT prophylaxis: Heparin 5000 units SQ BID Admission and Anticipated Discharge Date Admission Date: 12/30/2019 History of Present Illness Chief Complaint: Abdominal pain Primary Care Provider: Kyle Muse, DO Ocasio Leatha is an 89 year old female with past medical history of diverticulitis and hiatal hernia who presented to the ER on advice from her PCP due to abdominal pain and nausea. She reports this is much more painful than prior diverticulitis episodes and is more her upper abdomen. Started around 6am today, no radiation, severity 8/10 initially, currently mostly resolved after morphine given in the ER. Associated dry heaving but no vomiting. No change in bowels, no melena or blood noticed in stool. No urinary symptoms, shortness of breath, chest pain, acute cough, recent travel or COVID-19 exposure. She does note a more long standing cough at night when she lies flat. She has been told to keep her head up previously with her large hiatal hernia but notes she is inconsistent with this. No known allergies usually a this time of year. Allergies Allergy/AdvReac Type Severity Reaction Status Date / Time clarithromycin Allergy Unknown RASH Verified 12/30/19 14:45 Penicillins Allergy Unknown RASH Verified 12/30/19 14:45 Sulfa (Sulfonamide Allergy Unknown RASH Verified 12/30/19 14:45 Antibiotics) NICKELSULFATE Allergy Unknown RED;ITCHY Uncoded 12/30/19 14:45 SKIN Home Medications Home Medications Medication Instructions Recorded Confirmed Type aspirin 81 mg tablet,delayed 81 mg PO QAM 09/19/18 12/30/19 History release calcium carbonate-vitamin D3 600 1 tab PO QAM 09/19/18 12/30/19 History mg (1,500 mg)-800 unit tablet sqgzmcaq-yyrtnin-qbhp-lutein 1 tab PO DAILY tab 09/19/18 12/30/19 History melatonin 5 mg PO HS PRN 03/02/19 12/30/19 History famotidine 40 mg tablet 40 mg PO HS tab 09/17/19 12/30/19 History metoprolol succinate 50 mg 50 mg PO QAM #30 tab 10/03/19 12/30/19 Rx tablet,extended release 24 hr atorvastatin 40 mg tablet 40 mg PO QAM #90 tab 12/21/19 12/30/19 Rx losartan 100 mg tablet 100 mg PO QAM #90 tab 12/21/19 12/30/19 Rx Past Med/Surg History Medical History CAD (coronary artery disease) (Chronic) Dyslipidemia (Chronic) GERD (gastroesophageal reflux disease) History of atrial fibrillation POST OP CABG - RESOLVED SPONTANEOUSLY DURING HOSPITAL STAY - NO ISSUES SINCE. History of basal cell cancer HTN (hypertension) (Chronic) Left hip pain (Inactive) Lumbar radiculopathy (Inactive) Lumbar spinal stenosis Mitral regurgitation (Inactive) Osteoarthritis Sensorineural hearing loss (SNHL) of both ears (Inactive) Stage III chronic kidney disease (Acute) Status post nephrectomy BENIGN GROWTH Trigger finger Surgical History History of basal cell carcinoma (BCC) excision History of cardiac cath 9 YEARS AGO - [facility] - SOB, ABN STRESS TEST --> CABG History of cataract surgery History of colonoscopy History of coronary artery bypass graft 3 VESSELS - 9 YEARS AGO - [facility] – [place] - FOLLOWS W/ DR. 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) Family History Mother Coronary heart disease Father Coronary heart disease Brother Coronary heart disease Social History Preferred Language: French Communication Ability: Effective Visual Impairment: No Limitations Hearing Ability: Normal Special Delivery Mail Carrier Required: No Beliefs That Will Affect Care: None marital status: Current Living Situation: Spouse current occupational status: retired Feels Safe at Home: Yes Safety Concerns: Feels Safe At This Time Smoking Status: Never smoker Second Hand Exposure: No ; Hx Alcohol Use: Yes Alcohol type: wine Hx Substance Use: No Review of Systems Review of Systems: All systems reviewed & are unremarkable except as noted in HPI & below Physical Exam Constitutional: WD/WN, vitals as above Eyes: + anicteric sclerae; normal pupil size ENMT: external ear and nose normal, oropharynx normal Neck: trachea midline, no thyromegaly Respiratory: normal respiratory effort; no respiratory distress Auscultatio n: + diminished lung sounds (right base) and + crackles (right base); no rhonchi and no wheezes Cardiovascular: RRR, no murmur, no edema Gastrointestinal (Abdomen): Inspection/Auscultation: abdomen normal to inspection and normal bowel sounds Percussion/Palpation: + abdomen tender (mild on deep palpation epigastric and LLQ) and abdomen soft; no guarding and abdomen not rigid Musculoskeletal: no cyanosis or clubbing, extremities motor strength 5/5 Skin: no rashes, warm and dry Neurologic: moves all extremities and awake; no focal motor deficits and not confused Psychiatric: A+Ox3, euthymic affect Results & Data Results & Data ([facility]) Vital Signs (Past 12 Hours) Vital Signs Temp Pulse Pulse Resp BP BP Pulse Ox 12/30/19 15:45 56 L 18 177/99 H 96 12/30/19 14:10 95 12/30/19 14:04 36.5 C 54 L 15 167/86 H 96 Diagnostic Findings ABDOMEN AND PELVIS CT WITHOUT CONTRAST IMPRESSION: 1. Multiple prominent air and fluid-filled loops of small bowel throughout the abdomen and pelvis with reactive interloop edema and trace abdominal pelvic ascites is suggestive of low-grade small bowel obstruction versus ileus/enteritis. A discrete transition point is not identified. 2. Extensive colonic diverticulosis. Wall thickening within the mid sigmoid colon is likely secondary to chronic diverticular disease without definite acute diverticulitis identified. 3. Soft tissue attenuating 2.1 cm lesion of the superior pole left kidney has slightly increased in size over the years, previously measuring 1.6 cm in 2011. A slow-growing renal cell carcinoma is the diagnosis of exclusion. 4. Small right pleural effusion with right lung base opacities suggestive of atelectasis versus pneumonitis. 5. Large hiatal hernia. 6. Additional findings as above. ECG Indication: abdominal pain Rate (beats per minute): 67 Rhythm: normal sinus Findings: no acute ischemic change Comparison ECG Date: from (11/07/2006) Change: no significant change Code Status & VTE Plan Code Status Full, discussed with patient VTE Prophylaxis Plan VTE Prophylaxis will be ordered: Yes PG Care Time/CCT Total # of Minutes Spent Total Time Spent with Patient: Total time spent is greater than 50% in coordination of care (as documented) at patient's floor/unit and/or counseling patient: Coding Level of Care Code 36269 Initial Inpt Care Lvl 3 Diagnoses Diverticulitis K57.92 Small bowel obstruction K56.609 Large hiatal hernia K44.9 Pleural effusion on right J90 HTN (hypertension) I10 Dyslipidemia E78.5 CAD (coronary artery disease) I25.10 GERD (gastroesophageal reflux disease) K21.9 Stage III chronic kidney disease N18.3 Left kidney mass N28.89 DVT prophylaxis Z29.9
--- NOTE | 2019-12-30 16:57 | XRay Report ---
XR chest 2V PA/lateral HISTORY: 89 years-old Female right pleural effusion follow-up study in a patient with right-sided pl eural effusion COMPARISON: CT abdomen and pelvis of same day TECHNIQUE: PA and lateral views of the chest FINDINGS: Cardiac silhouette is enlarged. Prior median sternotomy with aortic valvular prosthesis. Calcific nataliia que of the thoracic aorta. No pneumothorax no overt pulmonary edema. Small to moderate right pleural effusion with right lung base opacities redemonstrated. The left lung is clear. Degenerative changes of the shoulders and spine. Large hiatal hernia. IMPRESSION: 1. Small to moderate right pleural effusion with right lung base consolidation. 2. Cardiomegaly without overt pulmonary edema. 3. Large hiatal hernia. ACT 112: Negative or not required by law. The above report was generated using voice recognition software. It may contain grammatical, syntax o r spelling errors. Electronically signed by: Carmelo Alfred M.D. 12/30/2019 4:56 PM
[2019-12-30] MEDS ORDERED: ONDANSETRON INJ 2 MG/ML 2 ML VIAL IV PRN (17:49)
[2019-12-30] MEDS ORDERED: MoRPHine SULFATE 2 MG/ML CARP IV PRN (18:26)
[2019-12-30] MEDS ORDERED: MoRPHine SULFATE 4 MG/ML 1 ML CARP\\VIAL IV PRN (18:26)
[2019-12-30] MEDS ORDERED: ACETAMINOPHEN 1,000 MG/100 ML VIAL IV PRN (18:26)
[2019-12-30] MEDS: ENALAPRILAT 1.25 MG in DEXTROSE 5% 25 ML IV SCH (20:24)
[2019-12-30] MEDS: LACTATED RINGER'S 1,000 ML IV SCH (20:24)
[2019-12-30] MEDS: FAMOTIDINE 20 MG in SYRINGE 3 ML IV SCH (20:55)
[2019-12-30] MEDS: HEPARIN SOD 5,000 UNIT/0.5 ML VIAL SQ SCH (21:04)
[2019-12-31] MEDS: ENALAPRILAT 1.25 MG in DEXTROSE 5% 25 ML IV SCH ×2 (01:32→06:34)
[2019-12-31] MEDS: metroNIDAZOLE 500 MG/100 ML BAG IV SCH ×3 (01:36→18:32)
[2019-12-31] MEDS: LACTATED RINGER'S 1,000 ML IV SCH ×2 (04:33→10:47)
[2019-12-31] MEDS: CIPROFLOXACIN / D5W 400 MG/200 ML BAG IV SCH ×2 (04:33→15:51)
[2019-12-31 06:41] LABS: Basophils # (auto) 0.05 K/uL (0-0.2); Basophils % (auto) 0.7 %; Eosinophils # (auto) 0.16 K/uL (0-0.5); Eosinophils % (auto) 2.3 %; Hematocrit (blood only) 37.2 % (37-47); Hemoglobin 11.9 g/dL (12.0-16.0); Immature Granulocytes # (auto) 0.01 K/uL (0.00-0.02); Immature Granulocytes % (auto) 0.1 %; Lymphocytes # (auto) 1.63 K/uL (1.2-3.4); Lymphocytes % (auto) 23.8 %; Mean Corpuscular Hemoglobin 30.4 pg (25-34); Mean Corpuscular Volume 95.1 fL (80-100); Mean Platelet Volume 11.5 fL (7.4-10.4); Monocytes # (auto) 0.67 K/uL (0.11-0.59); Monocytes % (auto) 9.8 %; Neutrophils # (auto) 4.33 K/uL (1.4-6.5); Neutrophils % (auto) 63.3 %; Platelet Count 124 K/uL (130-400); RDW Coefficient of Variation 14.3 % (11.5-14.5); RDW Standard Deviation 49.1 fL (36.4-46.3); Red Blood Count 3.91 M/uL (4.2-5.4); White Blood Count 6.85 K/uL (4.8-10.8)
[2019-12-31 07:01] LABS: Albumin Level 2.6 gm/dl (3.4-5.0); BUN Creatinine Ratio 19.3 (10-20); Calcium 8.3 mg/dl (8.5-10.1); Est GFR (African American) 56.6; Est GFR (Non-African American) 48.8; Potassium 3.9 mmol/L (3.5-5.1)
[2019-12-31 07:09] LABS: Albumin Globulin Ratio 0.9 (0.9-2); Bilirubin,Total 0.6 mg/dl (0.2-1); Globulin 2.9 gm/dl (2.5-4.0); Total Protein 5.5 gm/dl (6.4-8.2)
[2019-12-31 08:03] LABS: Appearance Urine Clear (Clear); Bacteria Urine Automated Negative (Negative); Bilirubin Urine Negative (Negative); Blood Urine Negative (Negative); Color Urine Dark Yellow; Epithelial Cell Urine Auto >30 /lpf (0-5); Glucose Urine UA Negative (Negative); Ketones Urine Trace (Negative); Leukocyte Esterase Urine Trace (Negative); Nitrite Urine Negative (Negative); Protein Urine Negative (Negative); RBC Urine Automated 0-4 /hpf (0-4); Specific Gravity Urine 1.026 (1.000-1.030); Urobilinogen Urine Negative (Negative)
[2019-12-31] MEDS ORDERED: ENALAPRILAT 2.5 MG in DEXTROSE 5% 25 ML IV SCH (09:00)
[2019-12-31] MEDS: HEPARIN SOD 5,000 UNIT/0.5 ML VIAL SQ SCH ×2 (09:24→20:11)
--- NOTE | 2019-12-31 11:35 | Hospitalist Progress Note ---
Date of Service December 31, 2019 Assessment & Plan (1) Diverticulitis: CT a/p on 12/29 was without contrast and not definitive; however, acute diverticulitis of her transverse bowel fits her symptoms clinically with mid transverse bowel wall thickening seen on CT. - Continue ciprofloxacin and metronidazole IV - Liquid diet today; advance cautiously this evening if she tolerates it - Passing flatus today, but no BM. If she does well, could consider PO abx tomorrow, advance diet, and possibly even discharge. (2) Small bowel obstruction: Low grade. Suspect more ileus from inflammation than true SBO. - Defer surgical consult as she is improving clinically - Plan as above (3) Large hiatal hernia: Most of her stomach is in her thoracic cavity therefore likely she is having reflux even if she does not notice it while on Pepcid. - Elevate head of bed > 30 degrees at night - Continue Pepcid (4) Pleural effusion on right: Possibly caused by atelectasis and poor air entry into RLL due to silent aspirations vs. compression from large hiatal hernia. Given her age cancerous etiology would be a more remote concern. No shortness of breath to suggest PNA. - Consider speech evaluation once diet is advanced although I suspect if she is aspirating this may be more down to her large hiatal hernia and nausea with current illness causing reflux. - Pulmonology consulted for recommendations for thoracocentesis (5) HTN (hypertension): BP is presently 150/70. HTN meds were held while NPO. - Restart home losartan & metoprolol (6) CAD (coronary artery disease): - Continue ASA, BB, ARB, statin (7) Dyslipidemia: - Continue statin (8) GERD (gastroesophageal reflux disease): As above for large hiatal hernia (9) Stage III chronic kidney disease: Baseline Cr ~1.0, eGFR ~50. Stable. - Continue to monitor BMP throughout admission. (10) Left kidney mass: Stable since last year, although slowly growing over the year. She notes she has urology follow up but cannot remember when this is. - Outpatient follow up (11) DVT prophylaxis: Heparin 5000 units SQ BID Admission and Anticipated Discharge Date Admission Date: December 30, 2019 Subjective Much improved today. No pain in the abdomen. No nausea or vomiting. Actually having some hunger. Reports no fevers/chills, chest pain, shortness of breath, abdominal pain, nausea, or vomiting. Physical Exam Constitutional: WD/WN, vitals as above Eyes: EOM intact bilaterally; no conjunctival abnormality ENMT: external ear and nose normal, oropharynx normal Neck: trachea midline, no thyromegaly normal visual inspection Respiratory: normal respiratory effort, lungs clear to auscultation no respiratory distress Cardiovascular: RRR, no murmur, no edema Gastrointestinal (Abdomen): Inspection/Auscultation: abdomen normal to inspection; abdomen not distended Percussion/Palpation: abdomen soft; abdomen nontender, no guarding and abdomen not rigid Musculoskeletal: no cyanosis or clubbing, extremities motor strength 5/5 Skin: no rashes, warm and dry Neurologic: moves all extremities and awake Psychiatric: Orientation: alert, oriented to person and cooperative Results & Data Results & Data ([facility]) Vital Signs (Past 12 Hours) Vital Signs Temp Pulse Resp BP Pulse Ox 12/31/19 06:45 37.2 C 63 20 150/69 H 91 12/30/19 23:45 36.9 C 57 L 15 153/75 H 91 PG Care Time/CCT Total # of Minutes Spent Total Time Spent with Patient: Total time spent is greater than 50% in coordination of care (as documented) at patient's floor/unit and/or counseling patient: Coding Level of Care Code 32038 Subseq Hosp Care Lvl 2 Diagnoses Diverticulitis K57.92 Small bowel obstruction K56.609 Large hiatal hernia K44.9 Pleural effusion on right J90 HTN (hypertension) I10 CAD (coronary artery disease) I25.10 Dyslipidemia E78.5 GERD (gastroesophageal reflux disease) K21.9 Stage III chronic kidney disease N18.3 Left kidney mass N28.89 DVT prophylaxis Z29.9
[2019-12-31] MEDS ORDERED: MoRPHine SULFATE 2 MG/ML CARP IV PRN (11:37)
[2019-12-31] MEDS ORDERED: ACETAMINOPHEN 325 MG TAB PO PRN (11:37)
[2019-12-31] MEDS: LOSARTAN POTASSIUM 50 MG TAB PO SCH (12:44)
--- NOTE | 2019-12-31 13:46 | Pulmonary Consultation ---
Date of Consultation December 31, 2019 Assessment & Plan (1) Pleural effusion on right: I discussed options with the patient including thoracentesis and drainage versus watching symptoms and repeating a chest x-ray. She does not appear very symptomatic at present. The patient favored repeating a chest x-ray in 2 weeks as opposed to undergoing a thoracentesis. The differential for this effusion is broad, however, I think it is less likely infectious given the lack of white count, fevers, chills or cough. She does have a history of cardiac disease and an echo would not be unreasonable. She also has a very loud heart murmur. However, she does not appear to be in any overt heart failure. The effusion may also be a sympathetic effusion related to the hiatal hernia and diverticulitis. We can follow-up with her in the pulmonary clinic with a chest x-ray in 2 weeks. Please let us know should any issues arise and we would be happy to reevaluate the situation. Please call us with questions. Thank you. (2) Large hiatal hernia: (3) CAD (coronary artery disease): History of Present Illness Reason for Consultation: Right-sided pleural effusion Requesting Physician: Dr. Carlos Ritchie Attending Physician: Allan Coleman MD History of Present Illness 89-year-old female with a history of hiatal hernia, diverticulitis, coronary artery disease, mitral valve regurgitation and hypertension who presents to the hospital due to abdominal pain for 1 day. Patient notes that yesterday morning she had abdominal pain and nausea and then in the afternoon the pain was unbearable so she went to the emergency department. She denied any chest pain. No shortness of breath, fevers or chills. No sick contacts. Denies any weight loss, night sweats or fatigue. She is pretty active at home and is able to walk her dog. She also lives with her . She denies any history of smoking. No significant secondhand smoke exposure. Pulmonary is consulted for right-sided pleural effusion that was seen on CT abdomen and chest x-ray. He is being treated for diverticulitis with ciprofloxacin and Flagyl. She notes that her stomach pain is much better and that she has an appetite this morning. She had a bowel movement yesterday. Denies any hematemesis or hematochezia/melena. Allergies Allergy/AdvReac Type Severity Reaction Status Date / Time clarithromycin Allergy Unknown RASH Verified 12/30/19 14:45 Penicillins Allergy Unknown RASH Verified 12/30/19 14:45 Sulfa (Sulfonamide Allergy Unknown RASH Verified 12/30/19 14:45 Antibiotics) NICKELSULFATE Allergy Unknown RED;ITCHY Uncoded 12/30/19 14:45 SKIN Home Medications Home Medications Medication Instructions Recorded Confirmed Type aspirin 81 mg tablet,delayed 81 mg PO QAM 09/19/18 12/30/19 History release calcium carbonate-vitamin D3 600 1 tab PO QAM 09/19/18 12/30/19 History mg (1,500 mg)-800 unit tablet quydimfl-bgrhnfi-qsar-lutein 1 tab PO DAILY tab 09/19/18 12/30/19 History melatonin 5 mg PO HS PRN 03/02/19 12/30/19 History famotidine 40 mg tablet 40 mg PO HS tab 09/17/19 12/30/19 History metoprolol succinate 50 mg 50 mg PO QAM #30 tab 10/03/19 12/30/19 Rx tablet,extended release 24 hr atorvastatin 40 mg tablet 40 mg PO QAM #90 tab 12/21/19 12/30/19 Rx losartan 100 mg tablet 100 mg PO QAM #90 tab 12/21/19 12/30/19 Rx Patient History Medical History CAD (coronary artery disease) (Chronic) Dyslipidemia (Chronic) GERD (gastroesophageal reflux disease) History of atrial fibrillation POST OP CABG - RESOLVED SPONTANEOUSLY DURING HOSPITAL STAY - NO ISSUES SINCE. History of basal cell cancer HTN (hypertension) (Chronic) Left hip pain (Inactive) Lumbar radiculopathy (Inactive) Lumbar spinal stenosis Mitral regurgitation (Inactive) Osteoarthritis Sensorineural hearing loss (SNHL) of both ears (Inactive) Stage III chronic kidney disease (Acute) Status post nephrectomy BENIGN GROWTH Trigger finger Surgical History History of basal cell carcinoma (BCC) excision History of cardiac cath 9 YEARS AGO - [facility] - SOB, ABN STRESS TEST --> CABG History of cataract surgery History of colonoscopy History of coronary artery bypass graft 3 VESSELS - 9 YEARS AGO - [facility] [place] FOLLOWS W/ DR. 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) Family History Mother Coronary heart disease Father Coronary heart disease Brother Coronary heart disease Social History Preferred Language: Israeli Communication Ability: Effective Visual Impairment: No Limitations Hearing Ability: Normal Substance Abuse Technician Required: No Beliefs That Will Affect Care: None marital status: Current Living Situation: Spouse current occupational status: retired Feels Safe at Home: Yes Safety Concerns: Feels Safe At This Time Smoking Status: Never smoker Second Hand Exposure: No ; Hx Alcohol Use: Yes Alcohol type: wine Hx Substance Use: No Review of Systems Review of Systems: All systems reviewed & are unremarkable except as noted in HPI & below Physical Exam Constitutional: WD/WN, vitals as above Eyes: PERRL, conjunctivae normal, anicteric sclerae ENMT: external ear and nose normal, oropharynx normal Neck: trachea midline, no thyromegaly Respiratory: normal respiratory effort, lungs clear to auscultation Cardiovascular: Rate/Rhythm: regular rate Heart Sounds: + murmur Extremities: no edema Gastrointestinal (Abdomen): normal bowel sounds, soft, nontender, no hepatosplenomegaly Musculoskeletal: no cyanosis or clubbing, extremities motor strength 5/5 Skin: no rashes, warm and dry Neurologic: PERRL, EOMI, accommodation nl, no face palsy, no dysarthria Psychiatric: A+Ox3, euthymic affect Results & Data Results & Data ([facility]) Vital Signs (Past 12 Hours) Vital Signs Temp Pulse Resp BP Pulse Ox 12/31/19 11:16 91 12/31/19 06:45 99.0 F 63 20 150/69 H 91 I personally reviewed the patient's laboratory data, chest imaging and previous notes. PG Care Time/CCT Total # of Minutes Spent Total Time Spent with Patient: Total time spent is greater than 50% in coordination of care (as documented) at patient's floor/unit and/or counseling patient: Coding Level of Care Code 26487 Initial Inpt Care Lvl 3 Medical Decision Making Moderate Complexity Diagnoses Pleural effusion on right J90 Large hiatal hernia K44.9 CAD (coronary artery disease) I25.10
[2019-12-31] MEDS: FAMOTIDINE 20 MG in SYRINGE 3 ML IV SCH (20:10)
[2019-12-31] MEDS ORDERED: FAMOTIDINE 40 MG TABLET PO SCH (21:00)
[2020-01-01] MEDS: metroNIDAZOLE 500 MG/100 ML BAG IV SCH ×3 (01:31→17:13)
[2020-01-01 02:27] LABS: Hematocrit (blood only) 38.8 % (37-47); Hemoglobin 12.7 g/dL (12.0-16.0); Mean Corpuscular Hemoglobin 31.2 pg (25-34); Mean Corpuscular Hgb Conc 32.7 g/dL (32-36); Mean Corpuscular Volume 95.3 fL (80-100); Mean Platelet Volume 12.1 fL (7.4-10.4); Platelet Count 132 K/uL (130-400); RDW Coefficient of Variation 14.1 % (11.5-14.5); RDW Standard Deviation 48.7 fL (36.4-46.3); Red Blood Count 4.07 M/uL (4.2-5.4); White Blood Count 7.27 K/uL (4.8-10.8)
[2020-01-01 02:44] LABS: BUN Creatinine Ratio 13.5 (10-20); Calcium 8.6 mg/dl (8.5-10.1); Creatinine Clr Calc Pharmacy 36.8 ml/min; Est GFR (African American) 52.9; Est GFR (Non-African American) 45.6; Potassium 3.9 mmol/L (3.5-5.1)
[2020-01-01] MEDS: CIPROFLOXACIN / D5W 400 MG/200 ML BAG IV SCH ×2 (03:34→17:13)
[2020-01-01] MEDS: HEPARIN SOD 5,000 UNIT/0.5 ML VIAL SQ SCH (08:33)
[2020-01-01] MEDS: LOSARTAN POTASSIUM 50 MG TAB PO SCH (08:34)
[2020-01-01] MEDS ORDERED: METOPROLOL SUCC 50MG EXT REL TAB PO SCH (09:00)
[2020-01-01] MEDS ORDERED: ASPIRIN 81 MG ECTAB PO SCH (09:00)
[2020-01-01] MEDS ORDERED: ATORVASTATIN 40 MG TAB PO SCH (09:00)
--- NOTE | 2020-01-07 23:00 | Discharge Summary ---
Date of Service January 01, 2020 Admission HPI Per Admitting Provider Ninfa Zhang is an 89 year old female with past medical history of diverticulitis and hiatal hernia who presented to the ER on advice from her PCP due to abdominal pain and nausea. She reports this is much more painful than prior diverticulitis episodes and is more her upper abdomen. Started around 6am today, no radiation, severity 8/10 initially, currently mostly resolved after morphine given in the ER. Associated dry heaving but no vomiting. No change in bowels, no melena or blood noticed in stool. No urinary symptoms, shortness of breath, chest pain, acute cough, recent travel or COVID-19 exposure. She does note a more long standing cough at night when she lies flat. She has been told to keep her head up previously with her large hiatal hernia but notes she is inconsistent with this. No known allergies u sually a this time of year. Principal Diagnosis diverticulitis Discharge Exam Constitutional: WD/WN, vitals as above Eyes: EOM intact bilaterally; no conjunctival abnormality ENMT: external ear and nose normal, oropharynx normal Neck: trachea midline, no thyromegaly normal visual inspection Respiratory: normal respiratory effort, lungs clear to auscultation no respiratory distress Cardiovascular: RRR, no murmur, no edema Gastrointestinal (Abdomen): Inspection/Auscultation: abdomen normal to inspection; abdomen not distended Percussion/Palpation: abdomen soft; abdomen nontender, no guarding and abdomen not rigid Musculoskeletal: no cyanosis or clubbing, extremities motor strength 5/5 Skin: no rashes, warm and dry Neurologic: moves all extremities and awake Psychiatric: Orientation: alert, oriented to person and cooperative Discharge Data Allergies Allergy/AdvReac Type Severity Reaction Status Date / Time clarithromycin Allergy Unknown RASH Verified 12/30/19 14:45 Penicillins Allergy Unknown RASH Verified 12/30/19 14:45 Sulfa (Sulfonamide Allergy Unknown RASH Verified 12/30/19 14:45 Antibiotics) NICKELSULFATE Allergy Unknown RED;ITCHY Uncoded 12/30/19 14:45 SKIN Consultations 12/30/19 15:36 ED Decision to Admit Stat 12/30/19 18:12 Consult Pulmonology Routine Ordered Studies 12/30/19 14:10 CT abd pelvis wo con Stat Hospital Course (1) Diverticulitis: CT a/p on 04/19 was without contrast and not definitive; however, acute diverticulitis of her transverse bowel fits her symptoms clinically with mid transverse bowel wall thickening seen on CT. - Continue ciprofloxacin and metronidazole IV - Liquid diet today; advance cautiously this evening if she tolerates it - On day of discharge, passed flatus. Advanced diet.'Tolerated PO antibiotics (2) Small bowel obstruction: Low grade. Suspect more ileus from inflammation than true SBO. - Defer surgical consult as she is improving clinically - Plan as above (3) Large hiatal hernia: Most of her stomach is in her thoracic cavity therefore likely she is having reflux even if she does not notice it while on Pepcid. - Elevate head of bed > 30 degrees at night - Continue Pepcid (4) Pleural effusion on right: Possibly caused by atelectasis and poor air entry into RLL due to silent aspirations vs. compression from large hiatal hernia. Given her age cancerous etiology would be a more remote concern. No shortness of breath to suggest PNA. - Consider speech evaluation once diet is advanced although I suspect if she is aspirating this may be more down to her large hiatal hernia and nausea with current illness causing reflux. - Pulmonology consulted for recommendations for thoracocentesis (5) HTN (hypertension): BP is presently 150/70. HTN meds were held while NPO. - Restart home losartan & metoprolol (6) CAD (coronary artery disease): - Continue ASA, BB, ARB, statin (7) Dyslipidemia: - Continue statin (8) GERD (gastroesophageal reflux disease): As above for large hiatal hernia (9) Stage III chronic kidney disease: Baseline Cr ~1.0, eGFR ~50. Stable. - Continue to monitor BMP throughout admission. (10) Left kidney mass: Stable since last year, although slowly growing over the year. She notes she has urology follow up but cannot remember when this is. - Outpatient follow up (11) DVT prophylaxis: Heparin 5000 units SQ BID Total Time Total Time Spent Total Time Spent (In Minutes): 35 Total Time Includes: Examination of the Patient, Discharge Planning and Medication Reconciliation Discharge Plan Discharge Items Patient Disposition: Home - Self-Care Reason For Visit: ABDOMINAL PAIN Discharge Diagnosis: Acute diverticulitis Condition on Discharge: Good Activity: Resume your previous activity Non-emergency contact: Primary Care Provider Call non-emergency contact if: you have any medication questions Follow-up/Referrals: Kyle Muse, DO [Primary Care Provider] - Diet: Low Fiber Diet Texture: Dental soft (bite-sized) Diet Comment: Slippery Diet: add sauce, gravy or condiment to help it slip down. Addtato Attending Provider Instructions: You were diagnosed with acute diverticulitis. You will continue antibiotics for 10 days. Followup with PCP in 1 week. Coronavirus disease 2019 (COVID-19) is a virus that causes a respiratory illness. It is caused by a coronavirus called 2019 novel coronavirus (2019- nCoV). There are many types of coronavirus. Coronaviruses are a very common cause of bronchitis. They may sometimes cause lung infection(pneumonia). Symptoms can range from mild to severe respiratory illness. These viruses are also foundin some animals. COVID-19 was first found in people in [facility], in late 2018. In 2020, several cases of COVID-19 have been confirmed in the [place] Public health officials are working to find the source. How the virus spreads is not yet fully known. It may be spread through droplets of fluid that a person coughs or sneezes into the air. It may be spread if you touch a surface with virus on it, such as a handle or object, and then touch your mouth. What are the symptoms of COVID-19? Some people have no symptoms or mild symptoms. Symptoms may appear 2 to 14 days after contact with the virus. Symptoms can include: Fever Coughing Trouble breathing What are possible complications from COVID-19? In many cases, this virus can cause infection (pneumonia) in both lungs. In some cases, this can cause . How is COVID-19 diagnosed? Your healthcare provider will ask about your symptoms. He or she will also ask about your recent travel and contact with sick people. Testing for the virus is only done through the CDC. If yourhealthcare provider thinks you may have COVID- 19, he or she will work with your local health department and the CDC on testing. Follow all instructions from your healthcare provider. COVID-19 is diagnosed by: Nasal and throat swab. A cotton-tipped swab is wiped inside your nose or throat. This is done to check for viruses in your nasal mucus. Sputum culture. A small sample of mucus coughed from your lungs (sputum) is collected if you have a cough. It is checked for the virus. How is COVID-19 treated? There is currently no medicine to treat the virus. Treatment is done to help your body while it fights the virus. This is known as supportive care. Supportive care may include: Pain medicine. These include acetaminophen and ibuprofen. They are used to help ease pain and reduce fever. Bed rest. This helps your body fight the illness. For severe illness, you may need to stay in the hospital. Care during severe illness may include: IV (intravenous) fluids.These are given through a vein to help keep your body hydrated. Oxygen. Supplemental oxygen or ventilation with a breathing machine (ventilator) may be given. This is done to keep enough oxygen in your body. Are you at risk for COVID-19? If youve been to a place where people have been sick with this virus, you are at risk for infection. You are at risk if you: Recently traveled to an affected area Had contact with a sick person who recently traveled to this area Had contact with a person who was diagnosed with COVID-19 How can COVID-19 be prevented? There is no vaccine yet. The best prevention is to not have contact with the virus. The CDC advises that people should not travel to areas where there are COVID-19 outbreaks right now for any reason that is not urgent. To help prevent spreading the infection, wash your hands often, or use an alcohol-basedhand dietetic aide. If you are in an area with COVID-19: Wash your hands often. Or use an alcohol-based hand dietetic aide often. Only touch your eyes, nose, or mouth with clean hands. Dont have contact with people who are sick. Follow local instructions about being in public. For example, you may be told to not use public transport for a period of time. Stay away from markets that have live or animals. Wash your hands after touching any animals. Don't touch animals that may be sick. Dont share eating or drinking tools with sick people. Dont kiss someone who is sick. Clean surfaces often with disinfectant. If you were in an area with COVID-19 in the last 14 days: Call your healthcare provider. He or she can talk with local health staff to see what action may be needed. Follow all instructions from your provider. Take your temperature every morning and evening for at least 14 days. This is to check for fever. Keep a record of the readings. Keep watch for symptoms of the virus. Tell your provider right away if you have symptoms. If you were in an area with COVID-19 and have a fever or other symptoms: Dont panic. Keep in mind that other illnesses can cause similar symptoms. Stay away from work, school, and public places. Limit physical contact with family members. Don't kiss anyone or share eating or drinking utensils. Clean surfaces you touch with disinfectant. This is to help prevent the virus from spreading. Call your healthcare provider. Explain that you have been exposed to COVID-19 and have symptoms. Do this before going to any hospital. Wait for instructions. Keep in mind that healthcare staff may wear protective equipment such as masks, gowns, gloves, and eye protection. You may be put in a separate room. This is to prevent the possible virus from spreading. Tell the healthcare staff about recent travel. This includes local travel on public transport. Staff may need to find other people you have been in contact with. Follow all instructions the healthcare staff give you. If you have been diagnosed with COVID-19 Follow all instructions from your healthcare provider. Dont leave your home, except to get medical care. Call your healthcare providers office before going. They can prepare and give you instructions. This will help prevent the virus from spreading. Dont go to work, school, or public areas. Dont use public transport or taxis. Stay away from other people in your home. Have them wear face masks around you. Dont share household items or food. Wear a face mask if you can. This includes at home or in a medical facility. Cover your face with a tissue when you cough or sneeze. Throw the tissue away. Wash your hands. Wash your hands often. Caregivers should: Follow all instructions from healthcare staff. Wear a face mask and protective clothing as advised. Wash hands often. Keep track of the sick persons symptoms. Clean surfaces, fabrics, and laundry thoroughly. Keep other people away from the sick person. When to call your healthcare provider Call your healthcare provider: If youve recently traveled and have symptoms If you have been diagnosed with COVID-19 and your symptoms are worse To learn more To find out more about COVID-19, visit the CDC website at www.cdc.gov/coronavirus/2019-ncov/index.html. [employer]. [address] [place] [address]. All rights reserved. This information is not intended as a substitute for professional medical care. Always follow your healthcare professional's instructions. This information has been adapted from [employer] Pending Studies at Discharge: No Stand-Alone Forms: My [facility], Smoking Cessation Medications and DC Order Prescriptions: New ciprofloxacin HCl 500 mg tablet 500 mg PO Q12H Qty: 20 RF: 0 metronidazole 500 mg tablet 500 mg PO Q8H 10 Days Qty: 30 RF: 0 Continued aspirin [Adult Aspirin Regimen] 81 mg tablet,delayed release (DR/EC) 81 mg PO QAM RF: 0 gmbztuhv-kqbkfdn-vzxe-lutein tablet 1 tab PO DAILY RF: 0 calcium carbonate-vitamin D3 [Caltrate with Vitamin D3] 600 mg(1,500mg) -800 unit tablet 1 tab PO QAM RF: 0 famotidine 40 mg tablet 40 mg PO HS RF: 0 metoprolol succinate 50 mg tablet extended release 24 hr 50 mg PO QAM Qty: 30 RF: 5 atorvastatin [Lipitor] 40 mg tablet 40 mg PO QAM Qty: 90 RF: 3 losartan 100 mg tablet 100 mg PO QAM Qty: 90 RF: 3 melatonin 5 mg Tablet 5 mg PO HS PRN (Reason: Insomnia) RF: 0 Discharge Orders: Discharge Order (Routine); Ordered 01/01/20 Ordered By: Marco Vieira Admission Data Admit Date/Time: 12/30/19 15:45 Attending Provider: Marco Vieira Admit Provider: Carlos Ritchie Primary Care Provider: Kyle Muse Other Providers: Luis Braun Other Interventions: Discharge Summary Assessment (RN) Last Done: 01/01/20 15:00 DC Date/Time DO NOT enter until pt leaves facility: 01/01/20 18:00 Coding Level of Care Code D/C Day Management >30 mins Diagnoses Diverticulitis K57.92 Small bowel obstruction K56.609 Large hiatal hernia K44.9 Pleural effusion on right J90 HTN (hypertension) I10 CAD (coronary artery disease) I25.10 Dyslipidemia E78.5 GERD (gastroesophageal reflux disease) K21.9 Stage III chronic kidney disease N18.3 Left kidney mass N28.89 DVT prophylaxis Z29.9
== END 2020-01-01 18:00 | disposition home or self-care (01) | DRG 392 ==
LOC: ED 13:59 → SUATTDRO 15:45 → 2N 15:45

== ENCOUNTER 2022-01-29 08:50 | Observation (INO) ==
--- NOTE | 2021-12-16 10:31 | PAT Medication Instructions ---
Medication Instructions Date of Service December 16, 2021 Home Medications Medication Instructions Recorded losartan 100 mg tablet 100 mg PO QAM #90 tab 01/06/21 atorvastatin 40 mg tablet (Lipitor) 40 mg PO QAM #90 tab 01/13/21 spironolactone 25 mg tablet 25 mg PO 2XWK #30 tab 09/15/21 metoprolol succinate 50 mg 50 mg PO QAM #90 tab 11/11/21 tablet,extended release 24 hr aspirin 81 mg tablet,delayed release (Adult Aspirin Regimen) 81 mg PO QAM calcium carbonate 600 mg-vitamin D3 20 mcg (800 unit) tablet (Caltrate with Vitamin D3) 1 tab PO QAM loetmusd-bwdticg-ibxa-lutein tablet 1 tab PO QAM melatonin 5 mg tablet 5 mg PO HS PRN fluticasone propionate 50 mcg/actuation nasal spray,suspension 1 spray INTRANASAL DAILY PRN losartan 100 mg tablet 100 mg PO QAM atorvastatin 40 mg tablet (Lipitor) 40 mg PO QAM spironolactone 25 mg tablet 25 mg PO 2XWK metoprolol succinate 50 mg tablet,extended release 24 hr 50 mg PO QAM acetaminophen 500 mg tablet 1,000 mg PO Q6H PRN omeprazole 20 mg capsule,delayed release 20 mg PO QAM STOP taking 2 weeks before surgery (or as soon as possible if surgery is within 2 weeks) skgiitia-krrnonm-hyhs-lutein tablet 1 tab PO QAM DO NOT take the morning of surgery calcium carbonate 600 mg-vitamin D3 20 mcg (800 unit) tablet (Caltrate with Vitamin D3) 1 tab PO QAM losartan 100 mg tablet 100 mg PO QAM spironolactone 25 mg tablet 25 mg PO 2XWK Take morning of surgery With a small sip of water, OTHERWISE NOTHING TO EAT OR DRINK AFTER MIDNIGHT: aspirin 81 mg tablet,delayed release (Adult Aspirin Regimen) 81 mg PO QAM (continue as normal unless told otherwise by surgeon) fluticasone propionate 50 mcg/actuation nasal spray,suspension 1 spray INTRANASAL DAILY PRN (if needed) atorvastatin 40 mg tablet (Lipitor) 40 mg PO QAM metoprolol succinate 50 mg tablet,extended release 24 hr 50 mg PO QAM acetaminophen 500 mg tablet 1,000 mg PO Q6H PRN (okay to take up to 4 hours prior to surgery if needed) omeprazole 20 mg capsule,delayed release 20 mg PO QAM Take evening before surgery melatonin 5 mg tablet 5 mg PO HS PRN (if needed) fluticasone propionate 50 mcg/actuation nasal spray,suspension 1 spray INTRANASAL DAILY PRN (if needed) acetaminophen 500 mg tablet 1,000 mg PO Q6H PRN (if needed) Other Notes If you have any questions please call us at [phone] or [phone] or [phone] or [phone]
--- NOTE | 2021-12-23 10:09 | Anesthesiology Consultation ---
Date of Service December 23, 2021 Assessment & Plan (1) Encounter for pre-operative examination: - COVID screening: Per assessment on 12/23: No known COVID-19 positive contacts or current COVID-19 related symptoms. Travel screen negative. Patient lucy brown. Surgeon arranging preop COVID testing. Awaiting results. - Aortic stenosis: s/p AVR (2010) 2/2 severe AI. 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 - Cardiology office visit (09/15/21): "She does have moderate functional aortic bioprosthetic valve stenosis, this not surprising after the 10-year point and is not clinically significant given that her ambulation is more limited by her arthralgias than any dyspnea. We did review warning symptoms that might suggest progressive aortic stenosis, at some future point if she she had lifestyle limiting symptoms attributable to progressive stenosis she could be a candidate for a TAVR. Follow valvular disease with annual auscultation and periodic echocardiograms. Continue beta nadir which was initiated to reduce risk of atrial fibrillation and decrease hyperadrenergic stimuli s/p CABG, she has not had any symptoms suggestive of sustained dysrhythmias. Continue long-term statin use given her history of CABG, tolerating medium dose atorvastatin well. 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 Awaiting cardiology response regarding preop recommendations ([place] workload note). Chart Review Chart Review: Patient seen in Pre Admission Testing Teaching & Discussion Pre-Anesthesia Teaching/Discussion Notes: Instructed NPO after midnight before surgery,except medications with 15 cc of water. Medication instructions provided according to the PAT guidelines. History Surgery Operation Date: 01/29/22 09:10 Proposed Procedures p Left Anterior Total Hip Arthroplasty - Kyle A Dario, DO Height/Weight Height: 5 ft 5 in Weight: 73.4 kg Allergies Allergy/AdvReac Type Severity Reaction Status Date / Time clarithromycin Allergy Unknown RASH Verified 12/15/21 09:55 Penicillins Allergy Unknown RASH Verified 12/15/21 09:55 Sulfa (Sulfonamide Allergy Unknown RASH Verified 12/15/21 09:55 Antibiotics) NICKELSULFATE Allergy Unknown RED;ITCHY Uncoded 12/15/21 09:55 SKIN Medications Home Medications Medication Instructions Recorded Confirmed Last Taken aspirin 81 mg tablet,delayed 81 mg PO QAM 09/19/18 12/23/21 Unknown release (Adult Aspirin Regimen) calcium carbonate 600 mg-vitamin 1 tab PO QAM 09/19/18 12/23/21 04/17/19 D3 20 mcg (800 unit) tablet (Caltrate with Vitamin D3) pxkwkgqb-oeollhv-invy-lutein tablet 1 tab PO QAM tab 09/19/18 12/23/21 04/17/19 melatonin 5 mg tablet 5 mg PO HS PRN 03/02/19 12/23/21 04/17/19 fluticasone propionate 50 1 spray INTRANASAL DAILY PRN 07/29/20 12/23/21 Unknown mcg/actuation nasal spray,suspension losartan 100 mg tablet 100 mg PO QAM #90 tab 01/06/21 12/23/21 Unknown atorvastatin 40 mg tablet (Lipitor) 40 mg PO QAM #90 tab 01/13/21 12/23/21 Unknown spironolactone 25 mg tablet 25 mg PO 2XWK #30 tab 09/15/21 12/23/21 Unknown metoprolol succinate 50 mg 50 mg PO QAM #90 tab 11/11/21 12/23/21 Unknown tablet,extended release 24 hr acetaminophen 500 mg tablet 1,000 mg PO Q6H PRN 12/15/21 12/23/21 Unknown omeprazole 20 mg capsule,delayed 20 mg PO QAM #90 cap 12/21/21 12/23/21 Unknown release 3-in-1 Commode #1 ea 12/23/21 12/23/21 Unknown Past Medical History Medical History Aortic valve disease 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 (calculated valve area 0.8 cm range) per 12/02/21 stress echo CAD (coronary artery disease) s/p CABG x3 (2010) Diverticulitis Hx Dyslipidemia Hiatal hernia with gastroesophageal reflux Large hiatal hernia, controlled GERD History of atrial fibrillation Post-op CABG, no known recurrence History of basal cell cancer History of COVID-19 Dx 06/22/21 > symptoms at time: SORE THROAT, LOW FEVER, LOSS TASTE AND SMELL > resolved HTN (hypertension) Left kidney mass Under observation Lumbar radiculopathy Lumbar spinal stenosis Osteoarthritis Sensorineural hearing loss (SNHL) of both ears Small bowel obstruction Solitary kidney s/p right nephrectomy (2007) Stage III chronic kidney disease Status post nephrectomy d/t benign growth Exercise / Class Metabolic Activity III < 4 Walking/Shop/Light housework (cane PRN (uneven surfaces)) Past Family History Family History Mother Coronary heart disease Myocardial infarction Father Coronary heart disease Brother Coronary heart disease Denies family history of Ovarian cancer Prostate cancer Breast cancer Colorectal cancer Past Surgical History Surgical History History of basal cell carcinoma (BCC) excision History of cardiac cath 2010 > CABG History of cataract surgery R/L History of colonoscopy History of dilatation and curettage History of esophagogastroduodenoscopy (EGD) History of nephrectomy, right 2007-BENIGN MASS History of tonsillectomy S/P aortic valve replacement and aortoplasty (2010) S/P CABG x 3 (2010) Past Anesthesia History No Hx of Anesthesia Complications and No Family Hx of Anesthesia Complications History of PONV No Hx of PONV and Hx of Motion Sickness Social History Smoking Status: Never smoker Do You Dip or Chew Tobacco: No Hx Alcohol Use: Yes Alcohol type: wine alcohol intake frequency: a few times a week Hx Substance Use: No substance use type: does not use Review of Systems Patient denies chest pain, shortness of breath, fever, chills, cough, wheezing, palpitations. Physical Exam Vital Signs VITALS BP 147/72 P 74 TEMP 98.6 SP02 94%RA RESP 18 PHYSICAL Full cervical extension range of motion. Full TMJ range of motion. TMD 2.5 finger breaths (small chin) Mallampati Score 2 Dentition: intact Lungs: clear throughout to auscultation Cardiac: regular rate and rhythm, / systolic murmur Spine: normal Carotid arteries: negative bruit Extremities: no edema Lab Results Anesthesia Preop Results Results Anesthesia Widget: WBC 6.45 K/uL (4.8-10.8) 12/23/21 Hgb 12.4 g/dL (12.0-16.0) 12/23/21 Hct 38.7 % (37-47) 12/23/21 Plt 149 K/uL (130-400) 12/23/21 Na 138 mmol/L (136-145) 12/23/21 K 4.3 mmol/L (3.5-5.1) 12/23/21 Cl 104 mmol/L (98-107) 12/23/21 CO2 27 mmol/L (21-32) 12/23/21 BUN 24 mg/dl (6-23) H 12/23/21 Creat 1.08 mg/dl (0.6-1.2) 12/23/21 Glucose Level 84 mg/dl (70-99(Fasting)) 12/23/21 PT 11.3 Seconds (9.0-12.0) 12/23/21 PTT 27.1 Seconds (21.0-31.0) 12/23/21 INR 1.1 (0.9-1.1) 12/23/21 Blood Type B Negative 12/23/21 Antibody Screen NEGATIVE 12/23/21 Testing Electrocardiogram Date: 12/23/21 Sinus rhythm with sinus arrhythmia. Nonspecific T wave abnormality. unconfirmed report. Chest X-Ray Date: 12/23/21 FINDINGS: The cardiac silhouette is enlarged. Prior median sternotomy with cardiac valvular prosthesis. Atherosclerosis of the thoracic aorta. No pneumothorax, large pleural effusion, overt pulmonary edema or lobar airspace consolidation. Large hiatal hernia. Degenerative changes of the shoulders and spine. IMPRESSION: Cardiomegaly without acute process. Large hiatal hernia (known*). 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 LVEF 50-55%. Negative dobutamine stress echo/ECG for myocardial ischemia 96% MPHR. Moderate concentric LVH. Moderate LAD. Moderate RAD. Moderate MR.
--- NOTE | 2022-01-28 13:45 | History & Physical Report ---
Date of Service January 28, 2022 Assessment & Plan (1) Osteoarthritis of hip: We will proceed with a left anterior total hip arthroplasty. Postoperatively she will be started on aspirin for DVT prophylaxis and kept overnight in the hospital for postoperative medical management. She plans to [facility] upon discharge. History of Present Illness Chief Complaint: Osteoarthritis of the left hip. Primary Care Provider: Kyle MuseDO Ocasio is a pleasant 89-year-old female who is been dealing with chronic increasing left hip and groin pain. X-rays and clinical examination have been diagnostic for advanced osteoarthritis of the left hip. After failing conservative treatment, she elected to proceed with a left total hip arthroplasty. Allergies Allergy/AdvReac Type Severity Reaction Status Date / Time clarithromycin Allergy Unknown RASH Verified 01/28/22 11:17 Penicillins Allergy Unknown RASH Verified 01/28/22 11:17 Sulfa (Sulfonamide Allergy Unknown RASH Verified 01/28/22 11:17 Antibiotics) NICKELSULFATE Allergy Unknown RED;ITCHY Uncoded 01/28/22 11:17 SKIN Home Medications Medication Instructions Recorded Confirmed Type aspirin 81 mg tablet,delayed 81 mg PO QAM 09/19/18 01/28/22 History release (Adult Aspirin Regimen) calcium carbonate 600 mg-vitamin 1 tab PO QAM 09/19/18 01/28/22 History D3 20 mcg (800 unit) tablet (Caltrate with Vitamin D3) euxxnqnv-tmlsvqu-kzzw-lutein tablet 1 tab PO QAM tab 09/19/18 01/28/22 History melatonin 5 mg tablet 5 mg PO HS PRN 03/02/19 01/28/22 History fluticasone propionate 50 1 spray INTRANASAL DAILY PRN 07/29/20 01/28/22 History mcg/actuation nasal spray,suspension spironolactone 25 mg tablet 25 mg PO 2XWK #30 tab 09/15/21 01/28/22 Rx metoprolol succinate 50 mg 50 mg PO QAM #90 tab 11/11/21 01/28/22 Rx tablet,extended release 24 hr acetaminophen 500 mg tablet 1,000 mg PO Q6H PRN 12/15/21 01/28/22 History 3-in-1 Commode #1 ea 12/23/21 12/23/21 Rx losartan 100 mg tablet 100 mg PO QAM #90 tab 12/28/21 01/28/22 Rx omeprazole 20 mg capsule,delayed 20 mg PO QAM #90 cap 12/29/21 01/28/22 Rx release atorvastatin 40 mg tablet (Lipitor) 40 mg PO QAM #90 tab 01/08/22 01/28/22 Rx Past Med/Surg History Medical History Aortic valve disease 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 (calculated valve area 0.8 cm range) per 12/02/21 stress echo CAD (coronary artery disease) s/p CABG x3 (2010) Diverticulitis Hx Dyslipidemia Hiatal hernia with gastroesophageal reflux Large hiatal hernia, controlled GERD History of atrial fibrillation Post-op CABG, no known recurrence History of basal cell cancer History of COVID-19 Dx 06/22/21 > symptoms at time: SORE THROAT, LOW FEVER, LOSS TASTE AND SMELL > resolved HTN (hypertension) Left kidney mass Under observation Lumbar radiculopathy Lumbar spinal stenosis Osteoarthritis Sensorineural hearing loss (SNHL) of both ears Small bowel obstruction Solitary kidney s/p right nephrectomy (2007) Stage III chronic kidney disease Status post nephrectomy d/t benign growth Surgical History History of basal cell carcinoma (BCC) excision History of cardiac cath 2010 > CABG History of cataract surgery R/L History of colonoscopy History of dilatation and curettage History of esophagogastroduodenoscopy (EGD) History of nephrectomy, right 2007-BENIGN MASS History of tonsillectomy S/P aortic valve replacement and aortoplasty (2010) S/P CABG x 3 (2010) Family History Mother Coronary heart disease Myocardial infarction Father Coronary heart disease Brother Coronary heart disease Denies family history of Ovarian cancer Prostate cancer Breast cancer Colorectal cancer Social History Smoking Status: Never smoker Second Hand Exposure: No; Hx Alcohol Use: Yes Alcohol type: wine Alcohol Intake Frequency: 2-3 x/Week Hx Substance Use: No Preferred Language: Romanian Communication Ability: Effective Visual Impairment: Limited Hearing Ability: Hard of Hearing Intraoperative Neuro Tech Required: No Beliefs That Will Affect Care: None marital status: Current Living Situation: Spouse current occupational status: retired How many Children do You have: 1 Feels Safe at Home: Yes Childhood Exposure to Second-Hand Smoke: No caffeine: No Dental Care, Regularly: Yes Physical Activity Frequency: Daily Physical Activity Frequency Comment: WALK Seatbelt Use: always Sunscreen Use: Yes Assistive Devices: Glasses Review of Systems All systems reviewed & are unremarkable except as noted in HPI & below. Physical Exam On physical examination of the left hip, she has decreased range of motion. Her leg lengths are equal. She has pain with forced internal rotation of her hip. Constitutional WD/WN, vitals as above Eyes PERRL, conjunctivae normal, anicteric sclerae ENMT external ear and nose normal, oropharynx normal Neck trachea midline, no thyromegaly Respiratory normal respiratory effort Cardiovascular RRR, no murmur, no edema Gastrointestinal (Abdomen) normal bowel sounds, soft, nontender, no hepatosplenomegaly Psychiatric A+Ox3, euthymic affect Results & Data Results & Data Laboratory Results . Diagnostic Findings X-rays of the left hip show advanced osteoarthritis with joint space narrowing, osteophyte formation, and kxfz-kd-wzzc articulation. PG Care Time/CCT Total # of Minutes Spent Total Time Spent with Patient: Total time spent is greater than 50% in coordination of care (as documented) at patient's floor/unit and/or counseling patient: Coding Level of Care Code None Diagnoses Osteoarthritis of hip M16.9 Laterality: left (1) Osteoarthritis of hip Laterality: left
[~2022-01-29 08:50] MED LIST changes: +ACETAMINOPHEN 500 MG TAB PO SCH; +ALLERGY Noted to ORDERED Medication SCH; -ASPI-589 PO; -ATOR-24 PO; +BUPIVACAINE 0.5 % 5 MG/1 ML PF 10ML VIAL ONE; -CALC-354 PO; -CIPR-255 PO; +FAMOTIDINE 20 MG TAB PO SCH; +GABAPENTIN 300 MG CAP PO SCH; +Ketorolac (*for OR use only*) 30 MG, dexAMETHasone 4 MG, KETAMINE HCL (**OR use only) 1... INFIL SCH; -LOSA1TAB38 PO; +LR 15ML/HR IV SCH; +LR 60ML/HR IV SCH; -METO50TA8 PO; -MULT-1092 PO; -PANT40TA PO; +TRANEXAMIC ACID 1,000 MG **IV Intra-op IV SCH; +TRANEXAMIC ACID 1,000 MG **IV Pre-op IV SCH; -TRIATAB3 PO; +dexAMETHasone 4 MG TAB PO SCH
[2022-01-29] MEDS ORDERED: LIDOCAINE 2% 2 ML VIAL/AMP(20MG/ML) INFIL ONE (09:46)
[2022-01-29] MEDS ORDERED: PROPOFOL IV EMULSION 10 MG/ML 20 ML VIAL IV ONE (09:46)
[2022-01-29] MEDS ORDERED: ROCURONIUM BROMIDE 10 MG/ML 5 ML VIAL IV ONE (09:47)
[2022-01-29] MEDS ORDERED: fentaNYL citrate 100 MCG/2 ML VIAL ONE (09:54)
--- NOTE | 2022-01-29 10:17 | History & Physical Bridge Note ---
Date of Service January 29, 2022 History & Physical Bridge Note I have examined the patient, reviewed the History & Physical and in the interval since the performance of the History & Physical I have noted the following changes of clinical significance: no changes noted
[2022-01-29] MEDS ORDERED: ceFAZolin 1000MG 1,000 MG/7.5 ML SYR IV ONE (10:27)
[2022-01-29] MEDS ORDERED: ATROPINE SULFATE 0.1 MG/ML 10ML SYR IV PRN (10:45)
[2022-01-29] MEDS ORDERED: ePHEDrine sulfate 50 MG/ML AMP IV PRN (10:45)
[2022-01-29] MEDS ORDERED: ONDANSETRON INJ 2 MG/ML 2 ML VIAL IV PRN ×2 (10:45→15:04)
[2022-01-29] MEDS ORDERED: ORTHO JOINT ANESTHETIC ONE (11:06)
[2022-01-29] MEDS ORDERED: DEXAMETHASONE SOD INJ 4 MG/ML VIAL ONE (12:02)
[2022-01-29] MEDS ORDERED: GLYCOPYRROLATE 0.2 MG/ML VIAL ONE (12:04)
[2022-01-29] MEDS ORDERED: NEOSTIGMINE METHYLSULFATE 1 MG/ML 10ML VIAL ONE (12:04)
[2022-01-29] MEDS ORDERED: ONDANSETRON INJ 2 MG/ML 2 ML VIAL ONE (12:04)
--- NOTE | 2022-01-29 13:01 | Operative Report ---
PG Post Operative Report Pre & Post Diagnosis Operation Date: 01/29/22 11:40 Pre-Op Diagnosis: Left hip degenerative joint disease Post-Op Diagnosis: Left hip degenerative joint disease I identified the patient and participated in the time-out.: Yes Procedure Operation Date: 01/29/22 11:40 Actual Procedures p Left Anterior Total Hip Arthroplasty(Left) - Kyle Bishop DO Surgeon Kyle Bishop DO Pole Peeling Machine Operator Kyle Anton PAC Estimated Blood Loss 300 Findings Consistent with Post-Op Diagnosis Specimens Left femoral head Complications none Disposition Disposition: Recovery Room Indications Ninfa is a pleasant 89-year-old female who is dealing with chronic increasing left hip and groin pain. X-rays and clinical examination are diagnostic for advanced arthritis of the left hip. After failing conservative treatment, she elected proceed with a left total hip arthroplasty. Description of Procedure Implants used I used a [employer] total hip arthroplasty system with a size 5 high offset Avenir Complete stem, a 52 mm G7 cup with a 25mm screw, an E1 polyethylene liner, a 36 mm ceramic head with a -3.5 neck. Ninfa arrived at the hospital for the above procedure. She was seen in the wy eoperative holding area and the operative extremity was identified and signed. She was given a preoperative antibiotic, and TXA. She was then taken back to the operating room and laid on the table in the supine position. She was given a general anesthetic. The operative leg was secured to a Puristst leg positioner. The hip was then prepped and draped in sterile fashion. A timeout was done and the patient and the operative extremity was properly identified. An anterior approach was used. Dissection was taken down through the fascia and the tensor muscle belly was retracted laterally and the rectus was retracted medially. The circumflex vessels were identified and ligated. The capsule was then incised and tagged for later repair. The femoral neck was then cut and the femoral head was removed. The acetabulum was exposed. Time was spent doing a complete circumferential labral release. Sequential reaming of the acetabulum up to a size 51 reamer was done. Final reamings were done under fluoroscopy to ensure appropriate version. A Biomet 52mm G7 cup was then impacted into place. A single 25 mm screw was placed. The E1 polyethylene liner was then snapped into place. Surrounding soft tissues were then injected with 100 cc of an orthopedic pain control cocktail. The proximal femur was then exposed. Sequential broaching up to a size 5 broach was done. Off that broach a size 36 head with a -3.5 neck was trialed. The hip was reduced and fluoroscopic images showed anatomic alignment of the implants in acceptable length. The broach was removed. The final size 5 high offset Avenir Complete stem was then impacted into place. A ceramic 36mm head with a -3.5 neck was then impacted onto the stem and the hip was reduced. Final fluoroscopic images showed anatomic alignment of the hip. The capsule was then closed with #1 Vicryl suture. A dilute betadyne lavage was then done for 3 minutes. The joint was then irrigated with normal saline solution. The fascia was closed with #1 PDS suture. Skin was closed with 2-0 Vicryl, abdoul, and a Silverlon dressing. She was then transferred to a hospital bed and taken to the post anesthesia care unit in stable condition. She tolerated the procedure well. Kyle Anton PA-C, was present for the entire procedure. He was critical for patient positioning, prepping, draping, retraction exposure, wound closure and application of sterile dressing. I attest to the content of the Intraoperative Record and any orders documented therein. Any exceptions are noted below.
[2022-01-29] MEDS ORDERED: ePHEDrine sulfate 50 MG/ML AMP ONE (13:08)
--- NOTE | 2022-01-29 13:13 | Fluoroscopy Report ---
FL hip LT 1V CLINICAL HISTORY: LT ANTERIOR COMPARISON STUDY: None. FLUOROSCOPY TIME: 26 seconds. FINDINGS: Single fluoroscopic spot images of the left hip demonstrate a left total hip arthroplasty. The hardware appears intact. No fracture or dislocation. IMPRESSION: Fluoroscopic assistance provided for left total hip arthroplasty. ACT 112: Negative or not required by law. Electronically signed by: Amado Harrington M.D. 01/29/2022 1:12 PM
[2022-01-29] MEDS: fentaNYL citrate 100 MCG/2 ML VIAL IV PRN ×2 (13:32→13:38)
[2022-01-29] MEDS: HYDROmorphone INJ 2 MG/ML SYR/VIAL IV PRN ×2 (13:46→14:07)
--- NOTE | 2022-01-29 13:59 | XRay Report ---
AP PELVIS, CROSSTABLE LATERAL LEFT HIP History: Left total hip arthroplasty. Degenerative arthritis. Postop. FINDINGS: The patient is status post a left total hip arthroplasty. The hardware is intact. No fractu re or dislocation. Skin abdoul are in place. IMPRESSION: Left total hip arthroplasty. No evidence for hardware complication. ACT 112: Negative or not required by law. Electronically signed by: Amado Harrington M.D. 01/29/2022 1:58 PM
--- NOTE | 2022-01-29 14:53 | Anesthesiology Progress Note ---
Date of Service January 29, 2022 Anesthesia Post Procedure Vital Signs Vital Signs: Temp Pulse Pulse Resp BP Pulse Ox 01/29/22 14:45 54 L 16 119/64 98 01/29/22 14:30 63 17 117/75 98 01/29/22 14:20 58 L 17 124/61 98 01/29/22 14:10 55 L 20 136/67 98 01/29/22 14:00 36.6 C 58 L 18 154/76 H 96 01/29/22 13:50 61 17 171/84 H 93 01/29/22 13:40 61 16 164/81 H 98 01/29/22 13:30 69 22 164/87 H 99 01/29/22 13:24 36.6 C 64 19 141/78 H 98 01/29/22 10:13 62 18 168/92 H 96 01/29/22 09:18 36.8 C 115 H 20 161/106 H 96 Pain Intensity Left Hip: Pain Intensity: 4 Transfer of Care Handoff Completed per policy Notes Mental Status: alert / awake / arousable and participated in evaluation Patient Amnestic to Procedure: Yes Nausea / Vomiting: adequately controlled Pain: adequately controlled Airway Patency, RR, SpO2: stable & adequate BP & HR: stable & adequate Hydration State: stable & adequate Anesthetic Complications: no major complications apparent and Pt Satisfied with anesthetic care
[2022-01-29] MEDS: SODIUM CHLORIDE 0.9% 1000ML 1,000 ML IV SCH ×2 (14:55→23:48)
[2022-01-29] MEDS ORDERED: HYDROmorphone INJ 0.5 MG/0.5 ML SYR IV PRN (15:04)
[2022-01-29] MEDS ORDERED: METOCLOPRAMIDE HCL INJ 5 MG/ML 2 ML VIAL IV PRN (15:04)
[2022-01-29] MEDS ORDERED: SPIRONOLACTONE 25 MG TAB PO SCH (15:04)
[2022-01-29] MEDS ORDERED: NALOXONE HCL 0.4 MG/1 ML VIAL/CARP IV PRN (15:04)
[2022-01-29] MEDS ORDERED: FLUTICASONE PROPIONATE NA SPR 16 GM BTL NAE PRN (15:04)
[2022-01-29] MEDS ORDERED: MAGNESIUM HYDROXIDE SUSP 30 ML UDC PO PRN (15:04)
[2022-01-29] MEDS ORDERED: bisacodyL 10 MG SUPP PR PRN (15:04)
[2022-01-29] MEDS: ACETAMINOPHEN 500 MG TAB PO SCH ×2 (17:03→21:22)
[2022-01-29] MEDS: oxyCODONE HCL IR 5 MG TAB (IMMEDIATE RELEASE) PO PRN ×2 (17:04→21:17)
[2022-01-29] MEDS: ceFAZolin 2000MG 2,000 MG/15 ML SYR IV SCH (21:13)
[2022-01-29] MEDS: MELATONIN 3 MG TAB PO PRN (21:17)
[2022-01-29] MEDS: DOCUSATE SODIUM 100 MG CAP PO SCH (21:19)
[2022-01-29] MEDS: ASPIRIN 81 MG ECTAB PO SCH (21:19)
[2022-01-29] MEDS: SENNA 8.6 MG TAB PO SCH (21:21)
[2022-01-30] MEDS: ceFAZolin 2000MG 2,000 MG/15 ML SYR IV SCH (02:30)
[2022-01-30] MEDS: ACETAMINOPHEN 500 MG TAB PO SCH ×3 (06:22→21:21)
--- NOTE | 2022-01-30 07:17 | Orthopedic Progress Note ---
Date of Service January 30, 2022 Assessment & Plan (1) Status post left hip replacement: Overall she is doing well. She is not having too much pain in the left hip. She is on aspirin for DVT prophylaxis. She will be seen by physical therapy today for ambulation and range of motion exercises. She is hoping to be discharged to home. Her daughter can take care of her. We will see how she does today with therapy. If she feels safe going home, and if she does well, then she can be discharged home today. Otherwise, we can keep her till tomorrow and send her home then. Herminia Ocasio was seen and examined at bedside this morning. Overall she is doing fairly well. She is not having too much pain in the left hip. She has been up and ambulating to the bathroom. She has no complaints. . Review of Systems All systems reviewed & are unremarkable except as noted in HPI & below. Physical Exam On physical examination of the left hip, the dressing is clean and dry. Her leg lengths are equal. She has active dorsiflexion and plantarflexion of her left ankle. . Results & Data Results & Data Laboratory Results . Diagnostic Findings Postoperative x-rays of the left hip show the prosthesis to be in anatomic alignment without any evidence of fracture, dislocation, or loosening. . PG Care Time/CCT Total # of Minutes Spent Total Time Spent with Patient: Total time spent is greater than 50% in coordination of care (as documented) at patient's floor/unit and/or counseling patient: Coding Level of Care Code 49502 Post Operative Follow-Up Diagnoses Status post left hip replacement Z96.642
[2022-01-30] MEDS ORDERED: dexAMETHasone 4 MG TAB PO SCH (08:00)
[2022-01-30] MEDS: ATORVASTATIN 40 MG TAB PO SCH (09:35)
[2022-01-30] MEDS: ASPIRIN 81 MG ECTAB PO SCH ×2 (09:35→21:21)
[2022-01-30] MEDS: DOCUSATE SODIUM 100 MG CAP PO SCH ×2 (09:35→21:21)
[2022-01-30] MEDS: LOSARTAN POTASSIUM 50 MG TAB PO SCH (09:36)
[2022-01-30] MEDS: METOPROLOL SUCC 50MG EXT REL TAB PO SCH (09:36)
[2022-01-30] MEDS: MULTIVITAMIN TAB PO SCH (09:36)
[2022-01-30] MEDS: PANTOprazole 40 MG TAB PO SCH (09:36)
[2022-01-30] MEDS: oxyCODONE HCL IR 5 MG TAB (IMMEDIATE RELEASE) PO PRN ×2 (09:43→21:25)
[2022-01-30] MEDS: SENNA 8.6 MG TAB PO SCH (21:21)
[2022-01-30] MEDS: MELATONIN 3 MG TAB PO PRN (21:25)
[2022-01-31] MEDS: ACETAMINOPHEN 500 MG TAB PO SCH ×2 (05:00→13:11)
--- NOTE | 2022-01-31 07:20 | Orthopedic Progress Note ---
Date of Service January 31, 2022 Assessment & Plan (1) Status post left hip replacement: I reassured her that she is doing fairly well. She is been up and walking with physical therapy. The weakness in the hip flexor is common after an anterior hip replacement in the early stages. We will change the Silverlon dressing today and reinforce it with an absorbable dressing. She can be seen by physical therapy again today for ambulation and range of motion exercises. She is on aspirin for DVT prophylaxis. She can be discharged home later today. She will follow-up with orthopedics in 2 weeks. Herminia Ocasio was seen and examined at bedside this morning. Overall she is doing okay. She has some drainage from her dressing yesterday. She was able to walk with physical therapy. She has been up and walking to the bathroom. She is conc erned with some weakness of her hip flexor. She had no acute events overnight and has no other complaints. Review of Systems All systems reviewed & are unremarkable except as noted in HPI & below. Physical Exam On physical examination of the left hip, there is some bloody drainage on the Silverlon dressing. Has been reinforced with an ABD. The ABD is clean and dry. She is able to extend her knee and fully activate her quad. I did not do range of motion testing with her hip. Results & Data Results & Data Laboratory Results . Diagnostic Findings . PG Care Time/CCT Total # of Minutes Spent Total Time Spent with Patient: Total time spent is greater than 50% in coordination of care (as documented) at patient's floor/unit and/or counseling patient: Coding Level of Care Code 83350 Post Operative Follow-Up Diagnoses Status post left hip replacement Z96.642
--- NOTE | 2022-01-31 07:22 | Discharge Summary ---
Date of Service January 31, 2022 Admission HPI (Per Admitting) Ninfa is a pleasant 89-year-old female who is been dealing with chronic increasing left hip and groin pain. X-rays and clinical examination have been diagnostic for advanced osteoarthritis of the left hip. After failing conservative treatment, she elected to proceed with a left total hip arthroplasty. Admission Exam (Per Admitting) On physical examination of the left hip, she has decreased range of motion. Her leg lengths are equal. She has pain with forced internal rotation of her hip. Principal Diagnosis Same as "Discharge Diagnosis" noted below under Discharge Instructions. Discharge Exam On physical examination of the left hip, there is some bloody drainage on the Silverlon dressing. Has been reinforced with an ABD. The ABD is clean and dry. She is able to extend her knee and fully activate her quad. I did not do range of motion testing with her hip. Discharge Data Procedures Performed Operation Date: 01/29/22 11:40 Actual Procedures p Left Anterior Total Hip Arthroplasty(Left) - Kyle Bishop DO Ordered Studies 01/29/22 11:40 FL hip LT 1V Routine Hospital Course (1) Status post left hip replacement: On January 29, 2022 Ninfa arrived at [facility] and underwent a left anterior hip replacement without complication. She had a spinal anesthetic. Postoperatively she was started on aspirin for DVT prophylaxis and transferred to the general orthopedic floors. Her hospital course was uneventful. On postop day #1, her vital signs were stable and her pain was well controlled. She was able to participate well with physical therapy doing ambulation and range of motion exercises. She was having a little bit of weakness in her hip flexor and she had a little drainage from her dressing. Given her age, we decided to keep her an extra day. On postop day #2 she was doing fairly well. She was able to participate well with physical therapy. The dressing had been changed. Her vital signs are stable. She was then discharged home. She will follow-up with orthopedics in 2 weeks. PG Care Time/CCT Total # of Minutes Spent Total Time Spent with Patient: Total time spent is greater than 50% in coordination of care (as documented) at patient's floor/unit and/or counseling patient: Discharge Plan Discharge Items Patient Disposition: Home - Home Health Services Reason For Visit: DJD Left Hip Discharge Diagnosis: Left hip replacement Activity: Per Instructions section Non-emergency contact: Surgeon Call non-emergency contact if: your wound has increased redness and your wound has increased drainage Follow-up/Referrals: Kyle Muse, [Primary Care Provider] - Diet: Regular Addtl Attending Provider Instructions: Activity and Therapy Recommendations: * If you are using [facility] then therapy will be provided at your home until they feel you have accomplished all of your goals. * If you are using [facility] then Physical Therapy will be provided until they feel you are ready to start Outpatient Physical Therapy. * If you are not using home therapy then Outpatient Physical Therapy should start about 3-5 days from your day of surgery. Therapy will last about 6-10 weeks * You were shown a series of exercises in the hospital. Do these exercises three times each day including the exercises you were shown in physical therapy. * Get up and walk several times each day.~ For the first four weeks, try not to stand or walk for more than one hour at a time. If you do stand or walk for more than one hour, you will not hurt anything, but your leg will likely swell.~~ * As you feel comfortable, you may change from the walker or crutches to a cane and~then to independent walking. Medications: * Narcotic You will likely be sent home from the hospital with a prescription for the narcotic pain medication that worked best throughout your stay. * Aspirin Most patients will be required to take Aspirin 81mg twice a day for 6 weeks after surgery. This is obtained lmdq-tuc-efxxkgf and a prescription is not necessary. * Other medications may be prescribed for specific circumstances. If you have any questions, please call the office at . * Resume previous home medications unless otherwise instructed TEDs/Elastic Stockings: The white elastic stockings help limit swelling and prevent blood clots from forming in your legs. The more you wear them, the more they work. Wear them for six weeks. Dressing Care: Leave the Silverlon dressing in place for 7 days. After 7 days you may remove the dressing. If the incision is not draining then you may leave the abdoul open to air. If there is a little bit of drainage or if the abdoul are getting stuck on your clothing then cover the incision with a dry dressing. The abdoul will be removed at your 2 week follow-up appointment. Showering: You may shower with the Silverlon dressing in place. Do not let the shower spray hit the dressing directly. Pat the Silverlon dressing dry. If the dressing becomes wet underneath, then simply remove the dressing. Keep the incision dry until you are 7 days out from the day of surgery. After 7 days you may remove the Silverlon dressing and shower with the abdoul exposed. Let soapy water run over the abdoul and pat them dry. Do not scrub or soak the incision. Things To Watch For: * Drainage from the incision site that occurs more than one week after your surgery. * Increased redness at the incision site. * Fever above 102 degrees Fahrenheit. * Unusual chest pain or shortness of breath. * Call [facility] at with any of the above problems Follow-Up Visit: Follow-up with Dr. Bishop's PA (Kyle Anton) 2-3 weeks after your day of surgery. He will remove your abdoul and answer any questions. If you have any additional questions or concerns, Dr Bishop is usually in the office at the same time and will be available An appointment was probably scheduled when you signed-up for surgery in the office. If you have any questions call Office Instructions: More detailed instructions as well as Frequently Asked Questions were provided in a folder by our office when you signed-up for surgery. Please review these instructions when you get home. If you have any further questions or concerns, please feel free to call the office at [phone] Pending Studies at Discharge: No Stand-Alone Forms: My [facility] Medications and DC Order Prescriptions: New tramadol 50 mg tablet 50 mg PO Q6H PRN (Reason: pain) Qty: 30 RF: 0 Continued mtomhqmi-wiyqzal-gnmd-lutein tablet 1 tab PO QAM RF: 0 calcium carbonate-vitamin D3 [Caltrate with Vitamin D3] 600 mg(1,500mg) -800 unit tablet 1 tab PO QAM RF: 0 metoprolol succinate 50 mg tablet extended release 24 hr 50 mg PO QAM Qty: 90 RF: 3 losartan 100 mg tablet 100 mg PO QAM Qty: 90 RF: 3 omeprazole 20 mg capsule,delayed release(DR/EC) 20 mg PO QAM Qty: 90 RF: 3 atorvastatin [Lipitor] 40 mg tablet 40 mg PO QAM Qty: 90 RF: 3 fluticasone propionate 50 mcg/actuation spray,suspension 1 spray intranasal DAILY PRN (Reason: Allergy Symptoms) RF: 0 (DME) 3-in-1 Commode Misc See Rx Instructions .MEDSUPPLY Qty: 1 RF: 0 spironolactone 25 mg tablet 25 mg PO 2XWK Qty: 30 RF: 2 melatonin 5 mg Tablet 5 mg PO HS PRN (Reason: Insomnia) RF: 0 acetaminophen 500 mg Tablet 1,000 mg PO Q6H PRN (Reason: Pain) RF: 0 Changed aspirin [Adult Aspirin Regimen] 81 mg tablet,delayed release (DR/EC) 81 mg PO BID 42 Days Qty: 0 RF: 0 Discharge Orders: Discharge Order (Routine); Ordered 01/31/22 Ordered By: Kyle Bishop Admission Data Admit Date/Time: 01/29/22 13:30 Attending Provider: Kyle Bishop Admit Provider: Kyle Bishop Primary Care Provider: Kyle Muse Other Interventions: Discharge Summary Assessment (RN) Last Done: 01/30/22 11:57
[2022-01-31] MEDS: ASPIRIN 81 MG ECTAB PO SCH (08:08)
[2022-01-31] MEDS: MULTIVITAMIN TAB PO SCH (08:08)
[2022-01-31] MEDS: METOPROLOL SUCC 50MG EXT REL TAB PO SCH (08:09)
[2022-01-31] MEDS: DOCUSATE SODIUM 100 MG CAP PO SCH (08:09)
[2022-01-31] MEDS: PANTOprazole 40 MG TAB PO SCH (08:09)
[2022-01-31] MEDS: LOSARTAN POTASSIUM 50 MG TAB PO SCH (08:09)
[2022-01-31] MEDS: ATORVASTATIN 40 MG TAB PO SCH (08:09)
[2022-01-31] MEDS: oxyCODONE HCL IR 5 MG TAB (IMMEDIATE RELEASE) PO PRN (13:11)
== END 2022-01-31 15:15 | disposition home health service (06) ==
LOC: ASU 08:50 → 3E 08:50
DX: M16.12 Unilateral primary osteoarthritis, left hip; Z88.0 Allergy status to penicillin; Z88.1 Allergy status to other antibiotic agents; Z88.2 Allergy status to sulfonamides; Z95.5 Presence of coronary angioplasty implant and graft; Z79.82 Long term (current) use of aspirin; Z79.899 Other long term (current) drug therapy